=== PATIENT | female | born 1930 | race Caucasian/White ===

== ENCOUNTER 2018-07-07 05:53 | Inpatient (IN) | payer MEDICARE, OTHER ==
[2018-07-07 06:44] LABS: ANION GAP 15.4 mmol/L (5-15); CHLORIDE,CL 102 mmol/L (98-115); SODIUM,NA 134 mmol/L (136-145)
--- NOTE | 2018-07-07 06:50 | EDM.PDOC ---
ED HPI GENERAL MEDICAL PROBLEM - General Chief Complaint: General Stated Complaint: tarry stool Time Seen by Provider: 07/07/18 06:32 Source of Information: Reports: Patient, Family (Daughter) History Limitations: Reports: No Limitations - History of Present Illness INITIAL COMMENTS - FREE TEXT/NARRATIVE: Patient is an 87-year-old female that presents to the emergency department this morning via EMS and has a complaint of bloody stools. Per patient, she had a bowel movement that appeared dark and felt weak this morning, so contacted her daughter. Has a history of anemia, and states she is been taking 4 Aleve daily over the last 2 months for her chronic arthritis. Patient denies chest pain, shortness shortness of breath, headache, blurry vision, nausea or vomiting. Onset: Today Onset Date: 07/07/18 Onset Time: 05:00 Duration: Hour(s): Quality: Reports: Other (No pain) Severity: Mild Improves with: Reports: None Worsens with: Reports: None Associated Symptoms: Reports: Weakness. Denies: Confusion, Chest Pain, Fever/ Chills, Headaches, Nausea/Vomiting, Shortness of Breath, Syncope - Related Data Allergies Allergy/AdvReac Type Severity Reaction Status Date / Time ciprofloxacin [From Cipro] Allergy Diarrhea Verified 07/07/18 06:03 hydrocodone Allergy Dizziness Verified 07/07/18 06:03 Sulfa (Sulfonamide Allergy Rash Verified 07/07/18 06:34 Antibiotics) Home Meds: Home Meds Acetaminophen [Tylenol Arthritis] 1,300 mg PO Q8H 07/07/18 [History] Cholecalciferol (Vitamin D3) [Vitamin D] 5,000 unit PO DAILY 07/07/18 [History] Furosemide 20 mg PO DAILY PRN 07/07/18 [History] Naproxen Sodium [Aleve] 400 mg PO BID 07/07/18 [History] amLODIPine Besylate [Amlodipine Besylate] 10 mg PO DAILY 07/07/18 [History] ED ROS GENERAL - Review of Systems Review Of Systems: ROS reveals no pertinent complaints other than HPI. Constitutional: Reports: Malaise, Weakness HEENT: Reports: No Symptoms Respiratory: Reports: No Symptoms Cardiovascular: Reports: No Symptoms Endocrine: Reports: No Symptoms GI/Abdominal: Reports: Black Stool, Bloody Stool. Denies: Abdominal Pain : Reports: No Symptoms Musculoskeletal: Reports: No Symptoms Skin: Reports: No Symptoms Neurological: Reports: No Symptoms Psychiatric: Reports: No Symptoms Hematologic/Lymphatic: Reports: Anemia Immunologic: Reports: No Symptoms ED EXAM, GENERAL - Physical Exam Exam: See Below Exam Limited By: No Limitations General Appearance: Alert, WD/WN, No Apparent Distress Eye Exam: Bilateral Eye: Normal Inspection Nose: Normal Inspection, Normal Mucosa, No Blood Throat/Mouth: Normal Inspection, Normal Oropharynx, No Airway Compromise Head: Atraumatic, Normocephalic Neck: Normal Inspection, Supple, Non-Tender Respiratory/Chest: No Respiratory Distress, Lungs Clear, Normal Breath Sounds, No Accessory Muscle Use, Chest Non-Tender Cardiovascular: Regular Rate, Rhythm, Systolic Murmur GI/Abdominal: Normal Bowel Sounds, Soft, Non-Tender, No Organomegaly, No Distention, No Abnormal Bruit, No Mass. No: Distended, Guarding, Rigid, Rebound , Tender, Abnormal Bowel Sounds Back Exam: Normal Inspection. No: CVA Tenderness (L), CVA Tenderness (R) Extremities: Normal Inspection Neurological: Alert, Oriented, CN II-XII Intact, Normal Cognition Psychiatric: Normal Affect, Normal Mood Skin Exam: Warm, Dry, Intact, Normal Color, No Rash Lymphatic: No Adenopathy EKG INTERPRETATION EKG Date: 07/07/18 Time: 07:40 Rhythm: NSR Rate (Beats/Min): 85 [place]: Normal P-Wave: Present QRS: Normal ST-T: Normal QT: Normal Comparison: NA - No Prior EKG EKG Interpretation Comments: Occasional PVCs, no STEMI, no peaked or narrow T waves. Course - Vital Signs Last Recorded V/S: Last Vital Signs Temp 97.8 F 07/07/18 06:59 Pulse 93 07/07/18 06:59 Resp 24 H 07/07/18 06:59 BP 116/48 L 07/07/18 06:59 Pulse Ox 97 07/07/18 06:59 - Orders/Labs/Meds Orders: Active Orders 24 hr Category Date Time Status Patient Status [ADT] Routine ADT 07/07/18 07:40 Ordered EKG Documentation Completion [RC] ASDIRECTED Care 07/07/18 07:08 Ordered Oxygen Therapy [RC] PRN Care 07/07/18 07:40 Ordered VTE/DVT Education [RC] PER UNIT ROUTINE Care 07/07/18 07:40 Ordered Vital Signs [RC] Q4H Care 07/07/18 07:40 Ordered Regular Diet [DIET] Diet 07/07/18 Breakfast Ordered Hemoccult [OCCULT BLOOD DIAGNOSTIC] [OP] Stat Lab 07/07/18 06:33 Ordered PACKED CELLS [RED BLOOD CELLS LP] [BBK] Stat Lab 07/07/18 06:45 Ordered TYPE AND SCREEN [BBK] Stat Lab 07/07/18 06:45 Ordered TYPE AND SCREEN [BBK] Stat Lab 07/07/18 06:45 Ordered UA W/MICROSCOPIC [URIN] Stat Lab 07/07/18 06:10 Ordered Acetaminophen [Tylenol] Med 07/07/18 07:40 Ordered 650 mg PO Q4H PRN Dextrose 5%-0.45% NaCl [Dextrose 5%-1/2 NS] 500 ml Med 07/07/18 07:45 Ordered IV ASDIRECTED Ondansetron [Zofran ODT] Med 07/07/18 07:40 Ordered 4 mg PO Q4H PRN Sodium Chloride 0.9% [Syrex Flush] Med 07/07/18 06:10 Active 5 ml FLUSH Q8HR PRN oxyCODONE Med 07/07/18 07:40 Ordered 5 mg PO Q4H PRN Saline Lock Insert [OM.PC] Routine Oth 07/07/18 06:10 Ordered Resuscitation Status Routine Resus Stat 07/07/18 07:40 Ordered EKG 12 Lead [EK] Routine Ther 07/07/18 07:08 Ordered Medication Orders Acetaminophen (Tylenol) 650 mg PO Q4H PRN PRN Reason: Pain (Mild 1-3)/fever Dextrose/Sodium Chloride (Dextrose 5%-1/2 Ns) 500 mls @ 125 mls/hr IV ASDIRECTED [facility] Ondansetron HCl (Zofran Odt) 4 mg PO Q4H PRN PRN Reason: nausea, able to take PO Oxycodone HCl (Oxycodone) 5 mg PO Q4H PRN PRN Reason: Pain (moderate 4-6) Sodium Chloride (Syrex Flush) 5 ml FLUSH Q8HR PRN PRN Reason: Keep Vein Open Last Admin: 07/07/18 07:36 Dose: 5 ml Labs: Laboratory Tests 09/02/18 09/02/18 09/02/18 Range/Units 05:50 05:50 05:50 WBC 11.83 H (5.00-10.00) 10^3/uL RBC 2.21 L (3.80-5.50) 10^6/uL Hgb 5.4 L* (12.0-16.0) g/dL Hct 17.4 L* (37.0-47.0) % MCV 78.7 L (82.0-92.0) fL MCH 24.4 L (27.0-31.0) pg MCHC 31.0 L (32.0-36.0) g/dL RDW 20.0 H (11.5-14.5) % Plt Count 609 H (150-400) 10^3/uL MPV 9.0 (7.4-10.4) fL Immature Gran % (Auto) 0.4 (0.0-5.0) % Neut % (Auto) 78.9 H (50.0-70.0) % Lymph % (Auto) 14.6 L (20.0-40.0) % [place] % (Auto) 4.7 (2.0-8.0) % Eos % (Auto) 1.1 (1.0-3.0) % Baso % (Auto) 0.3 (0.0-1.0) % Immature Gran # (Auto) 0.05 (0.00-0.50) 10^3/uL Neut # (Auto) 9.32 H (2.50-7.00) 10^3/uL Lymph # (Auto) 1.73 (1.00-4.00) 10^3/uL [place] # (Auto) 0.56 (0.10-0.80) 10^3/uL Eos # (Auto) 0.13 (0.10-0.30) 10^3/uL Baso # (Auto) 0.04 (0.00-0.10) 10^3/uL PT (8.9-11.4) SEC INR (0.9-1.1) APTT (20.8-31.2) SEC Sodium 134 L (136-145) mmol/L Potassium 5.7 H (3.3-5.3) mmol/L Chloride 102 (98-115) mmol/L Carbon Dioxide 22.3 (21.0-32.0) mmol/L Anion Gap 15.4 H (5-15) mmol/L BUN 63 H* D (6-25) mg/dL Creatinine 0.78 (0.51-1.17) mg/dL Est Cr Clr Drug Dosing 41.05 mL/min Estimated GFR (MDRD) > 60 mL/min Glucose 179 mg/dL Calcium 8.9 (8.7-10.3) mg/dL Magnesium 1.8 (1.8-2.4) mg/dL Total Bilirubin 0.2 (0.2-1.0) mg/dL AST 30 (15-37) U/L ALT 15 (12-78) U/L Alkaline Phosphatase 52 (46-116) IU/L Total Protein 5.4 L (6.4-8.2) g/dL Albumin 2.28 L (3.00-4.80) g/dL 07/07/18 07/07/18 Range/Units 06:55 06:55 WBC (5.00-10.00) 10^3/uL RBC (3.80-5.50) 10^6/uL Hgb (12.0-16.0) g/dL Hct (37.0-47.0) % MCV (82.0-92.0) fL MCH (27.0-31.0) pg MCHC (32.0-36.0) g/dL RDW (11.5-14.5) % Plt Count (150-400) 10^3/uL MPV (7.4-10.4) fL Immature Gran % (Auto) (0.0-5.0) % Neut % (Auto) (50.0-70.0) % Lymph % (Auto) (20.0-40.0) % [place] % (Auto) (2.0-8.0) % Eos % (Auto) (1.0-3.0) % Baso % (Auto) (0.0-1.0) % Immature Gran # (Auto) (0.00-0.50) 10^3/uL Neut # (Auto) (2.50-7.00) 10^3/uL Lymph # (Auto) (1.00-4.00) 10^3/uL [place] # (Auto) (0.10-0.80) 10^3/uL Eos # (Auto) (0.10-0.30) 10^3/uL Baso # (Auto) (0.00-0.10) 10^3/uL PT 10.2 (8.9-11.4) SEC INR 1.0 (0.9-1.1) APTT 25.4 (20.8-31.2) SEC Sodium (136-145) mmol/L Potassium (3.3-5.3) mmol/L Chloride (98-115) mmol/L Carbon Dioxide (21.0-32.0) mmol/L Anion Gap (5-15) mmol/L BUN (6-25) mg/dL Creatinine (0.51-1.17) mg/dL Est Cr Clr Drug Dosing mL/min Estimated GFR (MDRD) mL/min Glucose mg/dL Calcium (8.7-10.3) mg/dL Magnesium (1.8-2.4) mg/dL Total Bilirubin (0.2-1.0) mg/dL AST (15-37) U/L ALT (12-78) U/L Alkaline Phosphatase (46-116) IU/L Total Protein (6.4-8.2) g/dL Albumin (3.00-4.80) g/dL Meds: Medications Generic Name Dose Route Start Last Admin Trade Name Freq PRN Reason Stop Dose Admin Acetaminophen 650 mg 07/07/18 07:40 Tylenol PO Q4H PRN Pain (Mild 1-3)/fever Dextrose/Sodium Chloride 500 mls @ 125 mls/hr 07/07/18 07:45 Dextrose 5%-1/2 Ns IV ASDIRECTED [facility] Ondansetron HCl 4 mg 07/07/18 07:40 Zofran Odt PO Q4H PRN nausea, able to take PO Oxycodone HCl 5 mg 07/07/18 07:40 Oxycodone PO Q4H PRN Pain (moderate 4-6) Sodium Chloride 5 ml 07/07/18 06:10 07/07/18 07:36 Syrex Flush FLUSH 5 ml Q8HR PRN Administration Keep Vein Open Discontinued Medications Generic Name Dose Route Start Last Admin Trade Name Freq PRN Reason Stop Dose Admin Ondansetron HCl 4 mg 07/07/18 07:18 07/07/18 07:24 Zofran IVPUSH 07/07/18 07:19 4 mg ONETIME ONE Administration Oxycodone/Acetaminophen 1 tab 07/07/18 07:18 07/07/18 07:26 Percocet 325-5 Mg PO 07/07/18 07:19 1 tab ONETIME ONE Administration - Re-Assessments/Exams Free Text/Narrative Re-Assessment/Exam: 07/07/18 07:45 Patient afebrile, nontoxic appearing, vital signs stable. Patient will be admitted inpatient, slow transfusion will be initiated with concern for hyperkalemia and elevated BUN. Departure - Departure Time of Disposition: 07:46 Disposition: Admitted As Inpatient 65 Condition: Fair Clinical Impression: Hyperkalemia Anemia Qualifiers: Anemia type: unspecified type Qualified Code(s): D64.9 - Anemia, unspecified - Discharge Information Referrals: Samina Salgado MD [Primary Care Provider] - Forms: ED Department Discharge - My Orders Last 24 Hours: My Active Orders 07/07/18 06:10 UA W/MICROSCOPIC [URIN] Stat Sodium Chloride 0.9% [Syrex Flush] 5 ml FLUSH Q8HR PRN Saline Lock Insert [OM.PC] Routine 07/07/18 06:33 Hemoccult [OCCULT BLOOD DIAGNOSTIC] [OP] Stat 07/07/18 06:45 PACKED CELLS [RED BLOOD CELLS LP] [BBK] Stat TYPE AND SCREEN [BBK] Stat TYPE AND SCREEN [BBK] Stat 07/07/18 07:08 EKG Documentation Completion [RC] ASDIRECTED EKG 12 Lead [EK] Routine 07/07/18 07:40 Patient Status [ADT] Routine Oxygen Therapy [RC] PRN VTE/DVT Education [RC] PER UNIT ROUTINE Vital Signs [RC] Q4H Acetaminophen [Tylenol] 650 mg PO Q4H PRN Ondansetron [Zofran ODT] 4 mg PO Q4H PRN oxyCODONE 5 mg PO Q4H PRN Resuscitation Status Routine 07/07/18 07:45 Dextrose 5%-0.45% NaCl [Dextrose 5%-1/2 NS] 500 ml IV ASDIRECTED 07/07/18 Breakfast Regular Diet [DIET] - Assessment/Plan Admission H&P: Please use this note as an admission H&P Last 24 Hours: My Active Orders 07/07/18 06:10 UA W/MICROSCOPIC [URIN] Stat Sodium Chloride 0.9% [Syrex Flush] 5 ml FLUSH Q8HR PRN Saline Lock Insert [OM.PC] Routine 07/07/18 06:33 Hemoccult [OCCULT BLOOD DIAGNOSTIC] [OP] Stat 07/07/18 06:45 PACKED CELLS [RED BLOOD CELLS LP] [BBK] Stat TYPE AND SCREEN [BBK] Stat TYPE AND SCREEN [BBK] Stat 07/07/18 07:08 EKG Documentation Completion [RC] ASDIRECTED EKG 12 Lead [EK] Routine 07/07/18 07:40 Patient Status [ADT] Routine Oxygen Therapy [RC] PRN VTE/DVT Education [RC] PER UNIT ROUTINE Vital Signs [RC] Q4H Acetaminophen [Tylenol] 650 mg PO Q4H PRN Ondansetron [Zofran ODT] 4 mg PO Q4H PRN oxyCODONE 5 mg PO Q4H PRN Resuscitation Status Routine 07/07/18 07:45 Dextrose 5%-0.45% NaCl [Dextrose 5%-1/2 NS] 500 ml IV ASDIRECTED 07/07/18 Breakfast Regular Diet [DIET] Assessment:: Anemia Plan: Admit inpatient
[2018-07-07] MEDS ORDERED: Ondansetron 4 MG/2 ML SDV IVPUSH ONE (07:18)
[2018-07-07] MEDS ORDERED: Acetaminophen/oxyCODONE 325-5 MG Tab PO ONE (07:18)
[2018-07-07] MEDS: Sodium Chloride 0.9% 5 ML Syringe FLUSH PRN ×3 (07:36→21:33)
[2018-07-07] MEDS ORDERED: Ondansetron 4 MG Tab.DIS PO PRN (07:40)
[2018-07-07] MEDS ORDERED: Dextrose 5%-0.45% NaCl 500 ML IV SCH (07:45)
[2018-07-07] MEDS: oxyCODONE 5 MG Tab PO PRN ×3 (14:35→23:04)
[2018-07-07 14:41] LABS: ANION GAP 14.7 mmol/L (5-15); CHLORIDE,CL 104 mmol/L (98-115); SODIUM,NA 137 mmol/L (136-145)
[2018-07-07] MEDS: Acetaminophen 325 MG Tab PO PRN ×2 (19:05→23:05)
[2018-07-07] MEDS ORDERED: Pantoprazole 40 MG Tab.CR PO ONE (21:00)
[2018-07-08] MEDS: oxyCODONE 5 MG Tab PO PRN ×5 (03:36→22:42)
[2018-07-08] MEDS: Pantoprazole 40 MG Tab.CR PO SCH ×2 (06:02→06:35)
[2018-07-08] MEDS: Acetaminophen 325 MG Tab PO PRN ×4 (06:02→22:43)
[2018-07-08 07:44] LABS: ANION GAP 11.8 mmol/L (5-15); CHLORIDE,CL 104 mmol/L (98-115); SODIUM,NA 137 mmol/L (136-145)
--- NOTE | 2018-07-08 11:53 | PCM.PN ---
- General Info Date of Service: 07/08/18 Admission Dx/Problem (Free Text): Patient is an 87-year-old female who presented to the emergency department for weakness and blood in stool and was admitted on 07/07/2018 for anemia and hyperkalemia. Patient was given 2 units of PRBCs. Patient's vital signs were stable upon admission. No evidence of continued GI bleed at that time. Subjective Update: Patient continues to gradually improve. Hemoglobin, hematocrit increased, potassium and BUNs decreased. Functional Status: Reports: Pain Controlled - Review of Systems General: Reports: No Symptoms HEENT: Reports: No Symptoms Pulmonary: Reports: No Symptoms Cardiovascular: Reports: No Symptoms Gastrointestinal: Reports: No Symptoms Genitourinary: Reports: No Symptoms Musculoskeletal: Reports: No Symptoms Skin: Reports: No Symptoms Neurological: Reports: No Symptoms Psychiatric: Reports: No Symptoms - Patient Data Vitals - Most Recent: Last Vital Signs Temp 98.8 F 07/08/18 06:23 Pulse 62 07/08/18 06:23 Resp 24 H 07/08/18 06:23 BP 130/62 07/08/18 06:23 Pulse Ox 98 07/08/18 07:40 Weight - Most Recent: 115 lb 12.8 oz I&O - Last 24 Hours: Intake & Output 07/07/18 07/08/18 07/08/18 22:59 06:59 14:59 Intake Total 910 125 Output Total 500 400 Balance 410 -275 Lab Results Last 24 Hours: Laboratory Results - last 24 hr 07/07/18 07/07/18 07/07/18 Range/Units 06:55 14:16 14:16 WBC 8.04 (5.00-10.00) 10^3/uL RBC 2.53 L (3.80-5.50) 10^6/uL Hgb 6.6 L* (12.0-16.0) g/dL Hct 20.7 L (37.0-47.0) % MCV 81.8 L D (82.0-92.0) fL MCH 26.1 L (27.0-31.0) pg MCHC 31.9 L (32.0-36.0) g/dL RDW 18.6 H (11.5-14.5) % Plt Count 413 H D (150-400) 10^3/uL MPV 8.1 (7.4-10.4) fL Immature Gran % (Auto) 0.7 (0.0-5.0) % Neut % (Auto) 77.6 H (50.0-70.0) % Lymph % (Auto) 14.1 L (20.0-40.0) % [place] % (Auto) 6.6 (2.0-8.0) % Eos % (Auto) 0.6 L (1.0-3.0) % Baso % (Auto) 0.4 (0.0-1.0) % Immature Gran # (Auto) 0.06 (0.00-0.50) 10^3/uL Neut # (Auto) 6.24 (2.50-7.00) 10^3/uL Lymph # (Auto) 1.13 (1.00-4.00) 10^3/uL [place] # (Auto) 0.53 (0.10-0.80) 10^3/uL Eos # (Auto) 0.05 L (0.10-0.30) 10^3/uL Baso # (Auto) 0.03 (0.00-0.10) 10^3/uL PT (8.9-11.4) SEC INR (0.9-1.1) Sodium 137 (136-145) mmol/L Potassium 4.7 (3.3-5.3) mmol/L Chloride 104 (98-115) mmol/L Carbon Dioxide 23.0 (21.0-32.0) mmol/L Anion Gap 14.7 (5-15) mmol/L BUN 59 H* (6-25) mg/dL Creatinine 0.73 (0.51-1.17) mg/dL Est Cr Clr Drug Dosing 38.26 mL/min Estimated GFR (MDRD) > 60 mL/min Glucose 132 mg/dL Calcium 8.9 (8.7-10.3) mg/dL Blood Type A POSITIVE Gel Antibody Screen Negative Crossmatch See Detail 07/08/18 07/08/18 07/08/18 Range/Units 07:15 07:15 07:15 WBC 7.17 (5.00-10.00) 10^3/uL RBC 2.81 L (3.80-5.50) 10^6/uL Hgb 7.6 L (12.0-16.0) g/dL Hct 23.1 L (37.0-47.0) % MCV 82.2 (82.0-92.0) fL MCH 27.0 (27.0-31.0) pg MCHC 32.9 (32.0-36.0) g/dL RDW 17.5 H (11.5-14.5) % Plt Count 361 (150-400) 10^3/uL MPV 8.2 (7.4-10.4) fL Immature Gran % (Auto) 0.1 (0.0-5.0) % Neut % (Auto) 72.0 H (50.0-70.0) % Lymph % (Auto) 14.6 L (20.0-40.0) % [place] % (Auto) 7.5 (2.0-8.0) % Eos % (Auto) 5.2 H (1.0-3.0) % Baso % (Auto) 0.6 (0.0-1.0) % Immature Gran # (Auto) 0.01 (0.00-0.50) 10^3/uL Neut # (Auto) 5.16 (2.50-7.00) 10^3/uL Lymph # (Auto) 1.05 (1.00-4.00) 10^3/uL [place] # (Auto) 0.54 (0.10-0.80) 10^3/uL Eos # (Auto) 0.37 H (0.10-0.30) 10^3/uL Baso # (Auto) 0.04 (0.00-0.10) 10^3/uL PT 9.6 (8.9-11.4) SEC INR 0.9 (0.9-1.1) Sodium 137 (136-145) mmol/L Potassium 4.2 (3.3-5.3) mmol/L Chloride 104 (98-115) mmol/L Carbon Dioxide 25.4 (21.0-32.0) mmol/L Anion Gap 11.8 (5-15) mmol/L BUN 36 H (6-25) mg/dL Creatinine 0.71 (0.51-1.17) mg/dL Est Cr Clr Drug Dosing 39.34 mL/min Estimated GFR (MDRD) > 60 mL/min Glucose 88 mg/dL Calcium 8.7 (8.7-10.3) mg/dL Blood Type Gel Antibody Screen Crossmatch Alejandro Results Last 24 Hours: Microbiology 07/07/18 06:50 Stool Occult Blood (ALEJANDRO) - Final Stool / Feces Med Orders - Current: Current Medications Acetaminophen (Tylenol) 650 mg PO Q4H PRN PRN Reason: Pain (Mild 1-3)/fever Last Admin: 07/08/18 06:02 Dose: 650 mg Ondansetron HCl (Zofran Odt) 4 mg PO Q4H PRN PRN Reason: nausea, able to take PO Oxycodone HCl (Oxycodone) 5 mg PO Q4H PRN PRN Reason: Pain (moderate 4-6) Last Admin: 07/08/18 08:12 Dose: 5 mg Pantoprazole Sodium (Protonix) 40 mg PO ACBREAKFAST [facility] Last Admin: 07/08/18 06:35 Dose: Not Given Sodium Chloride (Syrex Flush) 5 ml FLUSH Q8HR PRN PRN Reason: Keep Vein Open Last Admin: 07/07/18 21:33 Dose: 5 ml Discontinued Medications Dextrose/Sodium Chloride (Dextrose 5%-1/2 Ns) 500 mls @ 125 mls/hr IV ASDIRECTED [facility] Last Admin: 07/07/18 08:20 Dose: 125 mls/hr Ondansetron HCl (Zofran) 4 mg IVPUSH ONETIME ONE Stop: 07/07/18 07:19 Last Admin: 07/07/18 07:24 Dose: 4 mg Oxycodone/Acetaminophen (Percocet 325-5 Mg) 1 tab PO ONETIME ONE Stop: 07/07/18 07:19 Last Admin: 07/07/18 07:26 Dose: 1 tab Pantoprazole Sodium (Protonix) 40 mg PO ONETIME ONE Stop: 07/07/18 21:01 Last Admin: 07/07/18 21:28 Dose: 40 mg - Exam General: Alert, Oriented, Cooperative, No Acute Distress HEENT: Pupils Equal, Pupils Reactive Neck: Supple Lungs: Clear to Auscultation, Normal Respiratory Effort Cardiovascular: Regular Rate, Regular Rhythm GI/Abdominal Exam: Normal Bowel Sounds, Soft, Non-Tender, No Organomegaly, No Distention, No Abnormal Bruit, No Mass Back Exam: Normal Inspection. No: CVA Tenderness (L), CVA Tenderness (R) Extremities: Normal Inspection, No Pedal Edema Skin: Warm, Dry, Intact Neurological: No New Focal Deficit Psy/Mental Status: Alert, Normal Affect, Normal Mood - Problem List Review Problem List Initiated/Reviewed/Updated: Yes - My Orders Last 24 Hours: My Active Orders 07/07/18 10:55 UA W/MICROSCOPIC [URIN] Stat 07/07/18 12:52 EKG 12 Lead [EK] Routine 07/07/18 15:00 Vital Signs [RC] 0300,0700,1100,1500,1900,2300 07/07/18 15:37 Communication Order [RC] QSHIFT 07/07/18 Dinner Heart Healthy Diet [DIET] 07/08/18 07:00 Pantoprazole [ProTONIX] 40 mg PO ACBREAKFAST 07/08/18 11:44 Transfuse PRBC [Transfuse Red Blood Cells] [COMM] Stat - Assessment Assessment:: Patient is progressing well. Blood pressure remains 130s over 60s and heart rate in the 60s. Repeat lab work this a.m. showed WBC of 7.17, hemoglobin 7.6, hematocrit 23.1, potassium 4.2, and BUN of 36. All improved from previous day. No EKG changes. Patient will be given one more unit of PRBCs today and monitored closely. Patient has not had a bowel movement today. Last bowel movement was yesterday morning which was determined by nursing staff to be dark in color, but no bright red blood. Patient will be reevaluated by Dr. Kovacs tomorrow, and determination of status with need for diagnostic study to evaluate source anticipated. - Plan Plan:: Reevaluation by Dr. Kovacs tomorrow.
[2018-07-08] MEDS ORDERED: Sodium Chloride 0.9% 50 ML ONE (12:36)
[2018-07-09] MEDS: oxyCODONE 5 MG Tab PO PRN ×2 (03:15→09:11)
[2018-07-09] MEDS: Acetaminophen 325 MG Tab PO PRN ×2 (03:16→09:10)
[2018-07-09] MEDS: Pantoprazole 40 MG Tab.CR PO SCH (06:34)
[2018-07-09 07:44] LABS: ANION GAP 13.3 mmol/L (5-15); CHLORIDE,CL 102 mmol/L (98-115); SODIUM,NA 138 mmol/L (136-145)
--- NOTE | 2018-07-09 09:42 | PCM.DCSUM1 ---
Discharge Summary - Hospital Course Free Text/Narrative:: Kyara is being discharged from an inpatient stay from 07/07/18 - 07/09/18 for GI bleed, presumed to be upper GI bleed secondary to NSAID use for chronic pain associated with osteoarthritis and rheumatoid arthritis. She has not tolerated any of the DMARDs or other meds for RA and so she has uncontrolled pain. Tylenol has not been helpful along and she has had an intolerance to opoid medications due to dizziness and weakness and nausea. She has been tolerating oxycodone here with zofran as needed for nausea and they will go home on this. Kyara had noted blood in her stool, per ambulance report had black loose stool and in ER reported she did actually see some bright red blood in it. She denied any abdominal pain. Occult blood was positive although stool has dark, no bright red here in the hospital. She has not had any emesis. She was started on pantoprazole 40 mg PO daily and is tolerating that. NSAID's were discontinued. She has not had a BM in 24 hour and does not feel constipated. She would like to be on a medication to help pass her bowels if she is going to be on the oxycodone. Her daughter is requesting Percocet as she tolerated that well in the ER. Her hemoglobin was 5.4 on admission which was down from her baseline of 10.5 in February of 2018. She received a total of 3 units of PRBC's and hemoglobin at discharge is 9.6. She was still feeling tired but improved. She also had an acute elevation of her BUN at 63 and at discharge it is WNL at 22. Sodium was slightly low at 134 and K+ was elevated at 5.7 and at discharge sodium is normal at 138 and potassium is 4.2. Platelet count initially 609 and at discharge is 371. UA with 30-40 WBC and small LE with few bacteria, urine culture pending. No antibiotics at this time as she is asymptomatic and no sign of systemic infection. She also complained of severe hip and knee pain bilaterally, no hx of fall. X- rays of the bilateral hips and knees were ordered and reports are pending at the time of discharge. They are working on scheduling an appointment with orthopedics for additional evaluation. Recommend upper GI endoscopy as an outpatient. Services not available to be done inpatient at this time. Hemoglobin stable and no additional sign of ongoing blood loss. She states she cannot travel at this time due to pain and so if the percocet helps they will travel to [place] to see Dr. Morris for EGD. Would also recommend colonoscopy but she declines at this time states "there is no way I could drink 64 ounces". She will start with EGD. Follow-up in 1 week as an outpatient in clinic, sooner if clinically indicated. Discharge diagnoses: Upper GI bleed 2/2 NSAID use Anemia 2/2 above, improved after PRBC transfusion Elevated BUN, resolved Hyperkalemia, resolved Chronic pain Rheumatoid arthritis Osteoarthritis Heart murmur, stable New meds at discharge: Percocet 5/325 mg tabs, 1 tab PO q 4 hours PRN pain. Ondansetron 4 mg ODT, 1 tab PO q 6 hours PRN nausea. Pantoprazole 40 mg PO daily. Discontinued meds: Tylenol arthritis (replaced with Percocet) Aleve (2/2 GI bleed) Diagnosis: Stroke: No Modified Austyn Scale: No Signif.Disability Despite Sympt.Able to Carry Out Usual Act./Duties Modified Wright Scale Score: 1 - Discharge Data Discharge Date: 07/09/18 Discharge Disposition: Home, Self-Care 01 Condition: Good - Discharge Diagnosis/Problem(s) (1) Upper GI bleed SNOMED Code(s): 03220238 ICD Code: K92.2 - GASTROINTESTINAL HEMORRHAGE, UNSPECIFIED Status: Acute Current Visit: Yes (2) Elevated BUN SNOMED Code(s): 176487543 ICD Code: R79.9 - ABNORMAL FINDING OF BLOOD CHEMISTRY, UNSPECIFIED Status: Acute Current Visit: Yes (3) Hyponatremia SNOMED Code(s): 00326537 ICD Code: E87.1 - HYPO-OSMOLALITY AND HYPONATREMIA Status: Acute Current Visit: Yes (4) Rheumatoid arthritis SNOMED Code(s): 16388235 ICD Code: M06.9 - RHEUMATOID ARTHRITIS, UNSPECIFIED Status: Acute Current Visit: Yes (5) Osteoarthritis SNOMED Code(s): 857541033 ICD Code: M19.90 - UNSPECIFIED OSTEOARTHRITIS, UNSPECIFIED SITE Status: Acute Current Visit: Yes (6) Anemia SNOMED Code(s): 616268938 ICD Code: D64.9 - ANEMIA, UNSPECIFIED Status: Acute Current Visit: Yes Qualifiers: Anemia type: unspecified type Qualified Code(s): D64.9 - Anemia, unspecified (7) Hyperkalemia SNOMED Code(s): 60419267 ICD Code: E87.5 - HYPERKALEMIA Status: Acute Current Visit: Yes - Patient Summary/Data Recommended Follow-up Testing/Procedures: Upper GI endoscopy - Patient Instructions Diet: Regular Diet as Tolerated - Discharge Plan *PRESCRIPTION DRUG MONITORING PROGRAM REVIEWED*: Not Applicable *COPY OF PRESCRIPTION DRUG MONITORING REPORT IN PATIENT ABRAHAM: Not Applicable Prescriptions/Med Rec: Acetaminophen/oxyCODONE [Percocet 325-5 MG] 1 each PO Q4HR PRN #30 tab PRN Reason: Pain Ondansetron [Zofran ODT] 4 mg PO Q6H PRN #30 tab.dis PRN Reason: nausea, able to take PO Pantoprazole [ProTONIX] 40 mg PO ACBREAKFAST #30 tab.cr Sennosides/Docusate Sodium [Senna Plus Tablet] 1 tab PO BID PRN #60 tab PRN Reason: Constipation Home Medications: Home Meds Cholecalciferol (Vitamin D3) [Vitamin D] 5,000 unit PO DAILY 07/07/18 [History] Furosemide 20 mg PO DAILY PRN 07/07/18 [History] Non-Formulary Medication [NF Drug] 1 cap PO BIDMEALS 07/07/18 [History] Non-Formulary Medication [NF Drug] 1 cap PO TIDMEALS 07/07/18 [History] amLODIPine Besylate [Amlodipine Besylate] 10 mg PO DAILY 07/07/18 [History] Acetaminophen/oxyCODONE [Percocet 325-5 MG] 1 each PO Q4HR PRN #30 tab 07/09/18 [Rx] Ondansetron [Zofran ODT] 4 mg PO Q6H PRN #30 tab.dis 07/09/18 [Rx] Pantoprazole [ProTONIX] 40 mg PO ACBREAKFAST #30 tab.cr 07/09/18 [Rx] Sennosides/Docusate Sodium [Senna Plus Tablet] 1 tab PO BID PRN #60 tab [Rx] Forms: ED Department Discharge Referrals: Samina Salgado MD [Primary Care Provider] - - General Info Date of Service: 07/09/18 Admission Dx/Problem (Free Text: Patient is an 87-year-old female who presented to the emergency department for weakness and blood in stool and was admitted on 07/07/2018 for anemia and hyperkalemia. Patient was given 2 units of PRBCs. Patient's vital signs were stable upon admission. No evidence of continued GI bleed at that time. - Patient Data Vitals - Most Recent: Last Vital Signs Temp 98.4 F 07/09/18 06:50 Pulse 65 07/09/18 06:50 Resp 16 07/09/18 06:50 BP 148/59 H 07/09/18 06:50 Pulse Ox 94 L 07/09/18 08:30 Weight - Most Recent: 115 lb 12.8 oz I&O - Last 24 hours: Intake & Output 07/08/18 07/09/18 07/09/18 22:59 06:59 14:59 Intake Total 544 100 Output Total 300 1000 Balance 244 -900 Lab Results - Last 24 hrs: Laboratory Results - last 24 hr 07/07/18 07/09/18 07/09/18 Range/Units 06:55 07:10 07:10 WBC 5.88 (5.00-10.00) 10^3/uL RBC 3.60 L (3.80-5.50) 10^6/uL Hgb 9.6 L D (12.0-16.0) g/dL Hct 30.0 L (37.0-47.0) % MCV 83.3 (82.0-92.0) fL MCH 26.7 L (27.0-31.0) pg MCHC 32.0 (32.0-36.0) g/dL RDW 19.0 H (11.5-14.5) % Plt Count 371 (150-400) 10^3/uL MPV 8.3 (7.4-10.4) fL Immature Gran % (Auto) 0.2 (0.0-5.0) % Neut % (Auto) 69.2 (50.0-70.0) % Lymph % (Auto) 15.6 L (20.0-40.0) % [place] % (Auto) 8.7 H (2.0-8.0) % Eos % (Auto) 6.0 H (1.0-3.0) % Baso % (Auto) 0.3 (0.0-1.0) % Immature Gran # (Auto) 0.01 (0.00-0.50) 10^3/uL Neut # (Auto) 4.07 (2.50-7.00) 10^3/uL Lymph # (Auto) 0.92 L (1.00-4.00) 10^3/uL [place] # (Auto) 0.51 (0.10-0.80) 10^3/uL Eos # (Auto) 0.35 H (0.10-0.30) 10^3/uL Baso # (Auto) 0.02 (0.00-0.10) 10^3/uL Sodium 138 (136-145) mmol/L Potassium 4.2 (3.3-5.3) mmol/L Chloride 102 (98-115) mmol/L Carbon Dioxide 26.9 (21.0-32.0) mmol/L Anion Gap 13.3 (5-15) mmol/L BUN 22 (6-25) mg/dL Creatinine 0.68 (0.51-1.17) mg/dL Est Cr Clr Drug Dosing 41.08 mL/min Estimated GFR (MDRD) > 60 mL/min Glucose 100 mg/dL Calcium 9.0 (8.7-10.3) mg/dL Total Bilirubin 0.3 (0.2-1.0) mg/dL AST 18 (15-37) U/L ALT 15 (12-78) U/L Alkaline Phosphatase 53 (46-116) IU/L Total Protein 5.7 L (6.4-8.2) g/dL Albumin 2.33 L (3.00-4.80) g/dL Blood Type A POSITIVE Gel Antibody Screen Negative Crossmatch See Detail Med Orders - Current: Current Medications Acetaminophen (Tylenol) 650 mg PO Q4H PRN PRN Reason: Pain (Mild 1-3)/fever Last Admin: 07/09/18 09:10 Dose: 650 mg Ondansetron HCl (Zofran Odt) 4 mg PO Q4H PRN PRN Reason: nausea, able to take PO Oxycodone HCl (Oxycodone) 5 mg PO Q4H PRN PRN Reason: Pain (moderate 4-6) Last Admin: 07/09/18 09:11 Dose: 5 mg Pantoprazole Sodium (Protonix) 40 mg PO ACBREAKFAST [facility] Last Admin: 07/09/18 06:34 Dose: 40 mg Senna/Docusate Sodium (Senna Plus) 1 tab PO BID PRN PRN Reason: Constipation Sodium Chloride (Syrex Flush) 5 ml FLUSH Q8HR PRN PRN Reason: Keep Vein Open Last Admin: 07/07/18 21:33 Dose: 5 ml Discontinued Medications Dextrose/Sodium Chloride (Dextrose 5%-1/2 Ns) 500 mls @ 125 mls/hr IV ASDIRECTED [facility] Last Admin: 07/07/18 08:20 Dose: 125 mls/hr Sodium Chloride (Normal Saline) Confirm Administered Dose 50 mls @ as directed .ROUTE .STK-MED ONE Stop: 07/08/18 12:37 Last Admin: 07/08/18 13:02 Dose: 100 mls/hr Ondansetron HCl (Zofran) 4 mg IVPUSH ONETIME ONE Stop: 07/07/18 07:19 Last Admin: 07/07/18 07:24 Dose: 4 mg Oxycodone/Acetaminophen (Percocet 325-5 Mg) 1 tab PO ONETIME ONE Stop: 07/07/18 07:19 Last Admin: 07/07/18 07:26 Dose: 1 tab Pantoprazole Sodium (Protonix) 40 mg PO ONETIME ONE Stop: 07/07/18 21:01 Last Admin: 07/07/18 21:28 Dose: 40 mg - Exam General: Reports: Alert, Oriented, Cooperative, No Acute Distress Lungs: Reports: Clear to Auscultation, Normal Respiratory Effort Cardiovascular: Reports: Regular Rate, Regular Rhythm, Murmurs GI/Abdominal Exam: Normal Bowel Sounds, Soft, Non-Tender
== END 2018-07-09 12:20 | disposition home or self-care (01) | DRG 378 ==
LOC: KA.ED 05:53 → KA.MS 07:40
PROVIDERS: ADMIT Physician Assistant Surgical; ATTEND Physician Assistant Surgical
PROC: 30233N1 Transfusion of Nonautologous Red Blood Cells into Peripheral Vein, Percutaneous Approach (ICD-10-PCS; principal; 2018-07-07)
DX: K92.1 Melena (principal); D64.9 Anemia, unspecified; K92.2 Gastrointestinal hemorrhage, unspecified; E87.1 Hypo-osmolality and hyponatremia; Z79.1 Long term (current) use of non-steroidal anti-inflammatories (NSAID); M19.90 Unspecified osteoarthritis, unspecified site; M06.9 Rheumatoid arthritis, unspecified; G89.29 Other chronic pain; R79.89 Other specified abnormal findings of blood chemistry; E87.5 Hyperkalemia; R01.1 Cardiac murmur, unspecified; Z88.1 Allergy status to other antibiotic agents; Z88.5 Allergy status to narcotic agent; Z88.2 Allergy status to sulfonamides; Z79.899 Other long term (current) drug therapy
CPT/HCPCS: 36415; 36430; 73560-50; 80048; 80053; 81001; 82272; 83735; 85025; 85610; 85730; 86850; 86900; 86901; 86920; 86922; 87086; 93005; 96374; 99285; A9270-GY; J2405; J7042; J7050; P9016

== ENCOUNTER 2019-02-20 14:26 | Observation (INO) | payer MEDICARE, OTHER ==
[2019-02-20] MEDS ORDERED: Aspirin 81 MG Tab.Chew PO ONE (14:46)
--- NOTE | 2019-02-20 15:13 | EDM.PDOC ---
<Augustin Limon - Last Filed: 02/20/19 15:07> ED HPI GENERAL MEDICAL PROBLEM - General Chief Complaint: General Stated Complaint: TACHYCARDIA,NOT FEELING WELL Time Seen by Provider: 02/20/19 15:05 - Related Data Allergies Allergy/AdvReac Type Severity Reaction Status Date / Time ciprofloxacin [From Cipro] Allergy Diarrhea Verified 02/20/19 14:40 hydrocodone Allergy Dizziness Verified 02/20/19 14:40 Sulfa (Sulfonamide Allergy Rash Verified 02/20/19 14:40 Antibiotics) Home Meds: Home Meds Cholecalciferol (Vitamin D3) [Vitamin D] 5,000 unit PO DAILY 07/07/18 [History] Furosemide 20 mg PO DAILY PRN 07/07/18 [History] amLODIPine Besylate [Amlodipine Besylate] 10 mg PO DAILY 07/07/18 [History] Ondansetron [Zofran ODT] 4 mg PO Q6H PRN #30 tab.dis 07/09/18 [Rx] Acetaminophen/oxyCODONE [Percocet 325-5 MG] 1 each PO Q4HR 02/20/19 [History] Magnesium Hydroxide [Milk of Magnesia] 30 ml PO Q72H PRN 02/20/19 [History] Past Medical History HEENT History: Reports: Glaucoma, Hard of Hearing Cardiovascular History: Reports: Heart Murmur, Hypertension, Other (See Below) Other Cardiovascular History: episode of a-fib Respiratory History: Reports: Other (See Below) Other Respiratory History: 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 torn rotator cuff R Hematologic History: Reports: Anemia - Infectious Disease History Infectious Disease History: Reports: C-Difficile, Chicken Pox, Measles - Past Surgical History GI Surgical History: Reports: None, Colonoscopy, EGD Musculoskeletal Surgical History: Reports: Other (See Below) Social & Family History - Family History Family Medical History: Noncontributory - Caffeine Use Caffeine Use: Reports: None Course - Vital Signs Last Recorded V/S: Last Vital Signs Temp 36.8 C 02/20/19 14:36 Pulse 88 02/20/19 15:25 Resp 23 H 02/20/19 15:25 BP 136/68 02/20/19 15:25 Pulse Ox 98 02/20/19 15:25 Orthostatic Blood Pressure [] 127/50 Orthostatic Blood Pressure [] 121/50 - Orders/Labs/Meds Orders: Active Orders 24 hr Category Date Time Status EKG Documentation Completion [RC] ASDIRECTED Care 02/20/19 14:47 Active Orthostatic Vital Signs [RC] ASDIRECTED Care 02/20/19 15:58 Ordered CXR [Chest 2V] [CR] Stat Exams 02/20/19 15:22 Taken B-TYPE NATRIURETIC PEPTIDE,BNP [CHEM] Stat Lab 02/20/19 15:55 Ordered CK W CKMB [CHEM] Stat Lab 02/20/19 15:55 Ordered EKG 12 Lead [EK] Routine Ther 02/20/19 14:46 Ordered Labs: Laboratory Tests 02/20/19 02/20/19 Range/Units 15:00 15:00 WBC 6.67 (5.00-10.00) 10^3/uL RBC 3.79 L (3.80-5.50) 10^6/uL Hgb 8.8 L (12.0-16.0) g/dL Hct 28.4 L (37.0-47.0) % MCV 74.9 L D (82.0-92.0) fL MCH 23.2 L (27.0-31.0) pg MCHC 31.0 L (32.0-36.0) g/dL RDW 17.0 H (11.5-14.5) % Plt Count 452 H D (150-400) 10^3/uL MPV 8.1 (7.4-10.4) fL Immature Gran % (Auto) 0.1 (0.0-5.0) % Neut % (Auto) 75.0 H (50.0-70.0) % Lymph % (Auto) 14.8 L (20.0-40.0) % [place] % (Auto) 7.5 (2.0-8.0) % Eos % (Auto) 2.2 (1.0-3.0) % Baso % (Auto) 0.4 (0.0-1.0) % Immature Gran # (Auto) 0.01 (0.00-0.50) 10^3/uL Neut # (Auto) 4.99 (2.50-7.00) 10^3/uL Lymph # (Auto) 0.99 L (1.00-4.00) 10^3/uL [place] # (Auto) 0.50 (0.10-0.80) 10^3/uL Eos # (Auto) 0.15 (0.10-0.30) 10^3/uL Baso # (Auto) 0.03 (0.00-0.10) 10^3/uL Helmet Cells Occasional Elliptocytes Few Sodium 133 L (136-145) mmol/L Potassium 3.8 (3.3-5.3) mmol/L Chloride 94 L (98-115) mmol/L Carbon Dioxide 27.6 (21.0-32.0) mmol/L Anion Gap 15.2 H (5-15) mmol/L BUN 23 (6-25) mg/dL Creatinine 0.67 (0.51-1.17) mg/dL Est Cr Clr Drug Dosing 40.89 mL/min Estimated GFR (MDRD) > 60 mL/min Glucose 133 H (75 - 99) mg/dL Calcium 9.6 (8.7-10.3) mg/dL Troponin I 0.04 (0.00-0.070) ng/mL Meds: Medications Discontinued Medications Generic Name Dose Route Start Last Admin Trade Name Burkeq PRN Reason Stop Dose Admin Aspirin 324 mg 02/20/19 14:46 02/20/19 14:50 Aspirin PO 02/20/19 14:47 324 mg ONETIME ONE Administration Nitroglycerin 0.4 mg 02/20/19 15:19 02/20/19 15:25 Nitrostat SL 02/20/19 15:20 0.4 mg ONETIME ONE Administration - Re-Assessments/Exams Free Text/Narrative Re-Assessment/Exam: 02/20/19 15:19 As I was starting to evaluate this patient, RADHA Bravo arrived for shift change and will be taking over care as well as documentation. Departure - Departure Disposition: Refer to Observation Clinical Impression: Hyponatremia Chest pain Qualifiers: Chest pain type: unspecified Qualified Code(s): R07.9 - Chest pain, unspecified COPD (chronic obstructive pulmonary disease) Qualifiers: COPD type: unspecified COPD Qualified Code(s): J44.9 - Chronic obstructive pulmonary disease, unspecified Anemia Qualifiers: Anemia type: other cause Other causes of anemia: other cause, not classified Qualified Code(s): D64.89 - Other specified anemias - Discharge Information Referrals: Samina Salgado MD [Primary Care Provider] - Forms: ED Department Discharge - My Orders Last 24 Hours: My Active Orders 02/20/19 15:55 B-TYPE NATRIURETIC PEPTIDE,BNP [CHEM] Stat CK W CKMB [CHEM] Stat 02/20/19 15:58 Orthostatic Vital Signs [RC] ASDIRECTED - Assessment/Plan Last 24 Hours: My Active Orders 02/20/19 15:55 B-TYPE NATRIURETIC PEPTIDE,BNP [CHEM] Stat CK W CKMB [CHEM] Stat 02/20/19 15:58 Orthostatic Vital Signs [RC] ASDIRECTED <Mihir Gonzalez - Last Filed: 02/20/19 16:42> ED HPI GENERAL MEDICAL PROBLEM - General Source of Information: Reports: Patient, Family - History of Present Illness INITIAL COMMENTS - FREE TEXT/NARRATIVE: 88 YO WF complaining of palpitations, mild chest pressure with associated weakness and lightheadedness since yesterday. Pt reports chest pressure occurs from time to time and states this is no different, but today she noticed swelling in her ankles and elevated blood pressure prompting ER visit. Pt with PMH of COPD with O2 dependency. Pt denies any worsening shortness of breath or increased oxygen use. Pt denies fever/chills, no nausea/vomiting, no syncope, and no diaphoresis. Onset Date: 02/19/19 Duration: Day(s): (1) Location: Reports: Chest Quality: Reports: Pressure Severity: Mild Improves with: Reports: None Worsens with: Reports: None Associated Symptoms: Reports: Chest Pain, Shortness of Breath, Weakness. Denies : Diaphoresis, Fever/Chills, Nausea/Vomiting, Syncope ED ROS GENERAL - Review of Systems Review Of Systems: See Below Constitutional: Reports: No Symptoms HEENT: Reports: No Symptoms Respiratory: Reports: Shortness of Breath Cardiovascular: Reports: Chest Pain, Blood Pressure Problem, Edema, Lightheadedness, Palpitations Endocrine: Reports: No Symptoms GI/Abdominal: Reports: No Symptoms : Reports: No Symptoms Musculoskeletal: Reports: No Symptoms Skin: Reports: No Symptoms Neurological: Reports: No Symptoms Psychiatric: Reports: No Symptoms Hematologic/Lymphatic: Reports: No Symptoms Immunologic: Reports: No Symptoms ED EXAM, GENERAL - Physical Exam Exam: See Below Exam Limited By: No Limitations General Appearance: Alert, WD/WN, No Apparent Distress Eye Exam: Bilateral Eye: EOMI, PERRL Ears: Normal External Exam, Normal Canal, Hearing Grossly Normal, Normal TMs Nose: Normal Inspection, Normal Mucosa, No Blood Throat/Mouth: Normal Inspection, Normal Lips, Normal Teeth, Normal Gums, Normal Oropharynx, Normal Voice, No Airway Compromise Head: Atraumatic, Normocephalic Neck: Normal Inspection, Supple, Non-Tender, Full Range of Motion Respiratory/Chest: No Respiratory Distress, Lungs Clear, Normal Breath Sounds, No Accessory Muscle Use, Chest Non-Tender Cardiovascular: Normal Peripheral Pulses, Regular Rate, Rhythm, Systolic Murmur GI/Abdominal: Normal Bowel Sounds, Soft, Non-Tender, No Organomegaly, No Distention, No Abnormal Bruit, No Mass Back Exam: Normal Inspection, Full Range of Motion, NT Extremities: Pedal Edema Neurological: Alert, Oriented, CN II-XII Intact, Normal Cognition, Normal Gait, Normal Reflexes, No Motor/Sensory Deficits Psychiatric: Normal Affect, Normal Mood Skin Exam: Warm, Dry, Intact, Normal Color, No Rash Lymphatic: No Adenopathy EKG INTERPRETATION EKG Date: 02/20/19 Time: 15:00 Rhythm: NSR Rate (Beats/Min): 78 [place]: Normal P-Wave: Present QRS: Normal ST-T: Normal QT: Normal Course - Radiology Interpretation Free Text/Narrative:: CXR- chronic interstitial changes; NAD Departure - Departure Time of Disposition: 16:41 Condition: Fair - My Orders Last 24 Hours: My Active Orders 02/20/19 15:55 B-TYPE NATRIURETIC PEPTIDE,BNP [CHEM] Stat CK W CKMB [CHEM] Stat 02/20/19 15:58 Orthostatic Vital Signs [RC] ASDIRECTED - Assessment/Plan Last 24 Hours: My Active Orders 02/20/19 15:55 B-TYPE NATRIURETIC PEPTIDE,BNP [CHEM] Stat CK W CKMB [CHEM] Stat 02/20/19 15:58 Orthostatic Vital Signs [RC] ASDIRECTED Assessment:: 1. chest pain 2. palpitation 3. COPD exacerbation 4. Anemia 5. Hyponatremia Plan: 1. Admit for Obs 2. trop I Q6 x 3 3. ASA/Nitro 4. supportive care 5. serial Hgb 6. Duoneb tx Q4 and PRN
[2019-02-20] MEDS ORDERED: Nitroglycerin 0.4 MG Tab.SL SL ONE (15:19)
[2019-02-20 15:43] LABS: ANION GAP 15.2 mmol/L (5-15); CHLORIDE,CL 94 mmol/L (98-115); SODIUM,NA 133 mmol/L (136-145)
--- NOTE | 2019-02-20 16:13 | CR ---
[id number] RAD/RAD Chest PA And Lateral EXAM: RAD Chest PA And Lateral INDICATION: CHEST HEAVINESS. COMPARISON: Multiple priors, most recent is a radiograph from February 2018. Most recent CTs from October 03, 2017. DISCUSSION: Stable enlargement of the cardiomediastinal silhouette. Again seen is sequela of chronic interstitial lung disease with scarring and bronchiectasis, as seen on a CT from 2017. Findings appear to have progressed, most prominent in the right midlung. Differential diagnosis includes pneumonia in the setting of an acute infection. Otherwise, no significant change. IMPRESSION: Progression of chronic interstitial lung disease versus superimposed acute pneumonia in the right midlung, described above. Pietro Babb MD 02/20/19 3025 Thank you for allowing us to participate in the care of your patient.
[2019-02-20] MEDS ORDERED: cefTRIAXone 1 GM Vial IVPUSH ONE (16:22)
[2019-02-20] MEDS ORDERED: Sodium Chloride 0.9% 10 ML Syringe FLUSH PRN (16:27)
[2019-02-20] MEDS: Nitroglycerin 2% Oint 1 GM UD Packet TOP SCH ×2 (18:03→23:29)
[2019-02-20] MEDS ORDERED: Furosemide 20 MG Tab PO PRN (19:48)
[2019-02-20] MEDS ORDERED: Magnesium Hydroxide 400 MG/5 ML Susp 30 ML Cup PO PRN (19:48)
[2019-02-20] MEDS: Acetaminophen/oxyCODONE 325-5 MG Tab PO SCH (20:37)
[2019-02-20] MEDS ORDERED: Levofloxacin 500 MG Tab PO ONE (22:45)
[2019-02-20] MEDS ORDERED: Famotidine 20 MG Tab PO ONE (23:15)
[2019-02-21] MEDS: Acetaminophen/oxyCODONE 325-5 MG Tab PO SCH ×4 (00:34→11:37)
[2019-02-21] MEDS: Nitroglycerin 2% Oint 1 GM UD Packet TOP SCH ×2 (05:03→11:43)
--- NOTE | 2019-02-21 05:36 | HP ---
PATIENT PROFILE: The patient is an 88-year-old female patient who lives in [place], [place]. HISTORY OF PRESENT ILLNESS: This patient presented to the emergency room earlier today because of tachycardia and not feeling well. No complaints of chest pain but does have some epigastric discomfort. PAST MEDICAL HISTORY: Includes hypertension and chronic pain. Past infectious disease history includes Clostridium difficile infection and chickenpox and measles. PAST SURGICAL HISTORY: None. MEDICATIONS: Include 1. Oxycodone-acetaminophen 5/325 one tablet every 4 hours as needed for pain. 2. Magnesium hydroxide 30 mL on a p.r.n. basis. 3. Docusate 100 mg daily as necessary. 4. Amlodipine 10 mg daily. 5. Lasix 20 mg daily. SOCIAL/PERSONAL HISTORY: The patient does not smoke. Denies alcohol usage. FAMILY HISTORY: None significant. REVIEW OF SYSTEMS: HEAD AND NECK: No complaints. EYES: No complaints. EARS NOSE AND THROAT: No complaints. CHEST: Complains of chest palpitation but no distinct chest pain. HEART: Complains of palpitation. No dyspnea. No coughing. No chest pain. ABDOMEN: Some complaints of belching and bloating in the epigastric region. Slight nausea but no vomiting. No rectal bleeding. UROLOGICAL: No complaints. NEUROLOGICAL: No complaints. PHYSICAL EXAMINATION: GENERAL: The patient is alert. VITAL SIGNS: Temperature 36.8, pulse 88, respirations 20, blood pressure 136/68, oxygen saturation 98%. HEAD: Negative. EYES: Arcus senilis. EARS NOSE AND THROAT: Normal. NECK: Supple. Full range of motion. No midline swellings. LUNGS: Clinically clear to percussion and auscultation. HEART: Regular rhythm. Slight grade 1/6 systolic murmur in the apex. BREASTS: Without any masses. ABDOMEN: Soft. No tenderness noted. No hepatosplenomegaly. No rebound. No hernias noted. EXTREMITIES: Femoral pulses good. Extremities normal. NEUROLOGIC: Essentially intact. The patient has a history of some fast heart rate and has not been feeling well. DIAGNOSTIC: Chest x-ray shows chronic interstitial disease with possible pneumonia on the right side. Sodium is low at 133. Beta-natriuretic peptide is 131. LABORATORY DATA: Her hemoglobin is 8.8. She is moderately anemic. MCV is 74.9 which is low. MCH is 23.2, low. MCHC is 31, low. RDW is 17 which is slightly high. Platelet count is high at 452. IMPRESSION/PLAN: 1. Slight tachycardia, exact etiology is not known. Review cardiograms and watch her heart rate closely. She could be developing atrial fibrillation. 2. Possible right lower lobe pneumonia. We will start her on Rocephin. The evidence for pneumonia is not very clear-cut at this time. We will re- evaluate in the a.m. We will also get sputum for Gram stain and culture and sensitivity. We will watch her O2 sats closely. Wakeup. Continue old medications. 3. , Anemia, hypochromic, possible and deficiency. Will get serum iron, iron binding capacity, RBC, folate and stool for blood. May require blood transfusion if the hemoglobin keeps dropping. Will also start PPIs prophylactically. /[id number]/MODL MTDD
[2019-02-21] MEDS ORDERED: Omeprazole 20 MG Cap.CR PO SCH (07:30)
[2019-02-21 08:04] LABS: ANION GAP 16.8 mmol/L (5-15); CHLORIDE,CL 95 mmol/L (98-115); SODIUM,NA 136 mmol/L (136-145)
[2019-02-21] MEDS ORDERED: amLODIPine 5 MG Tab PO SCH (09:00)
[2019-02-21] MEDS ORDERED: Aspirin 325 MG Tab.EC PO SCH (09:00)
[2019-02-21] MEDS ORDERED: Cholecalciferol (Vitamin D3) 1,000 Unit Tab PO SCH (09:00)
--- NOTE | 2019-02-21 10:44 | PCM.DCSUM1 ---
Discharge Summary - Discharge Data Discharge Date: 02/21/19 Discharge Disposition: Home, Self-Care 01 Condition: Good - Patient Instructions Diet: Regular Diet as Tolerated Activity: As Tolerated Notify Provider of: Fever, Increased Pain, Nausea and/or Vomiting - Discharge Plan *COPY OF PRESCRIPTION DRUG MONITORING REPORT IN PATIENT ABRAHAM: Yes Prescriptions/Med Rec: Omeprazole 20 mg PO ACBREAKFAST #30 cap.cr Home Medications: Home Meds Cholecalciferol (Vitamin D3) [Vitamin D] 5,000 unit PO DAILY 07/07/18 [History] Furosemide 20 mg PO DAILY PRN 07/07/18 [History] amLODIPine Besylate [Amlodipine Besylate] 10 mg PO DAILY 07/07/18 [History] Ondansetron [Zofran ODT] 4 mg PO Q6H PRN #30 tab.dis 07/09/18 [Rx] Acetaminophen/oxyCODONE [Percocet 325-5 MG] 1 each PO Q4HR 02/20/19 [History] Magnesium Hydroxide [Milk of Magnesia] 30 ml PO Q72H PRN 02/20/19 [History] Omeprazole 20 mg PO ACBREAKFAST #30 cap.cr 02/21/19 [Rx] Referrals: Kraig Hamilton NP [Primary Care Provider] - 02/25/19 2:00 pm (moved Elmer's appt to 2:30) - Patient Data Vitals - Most Recent: Last Vital Signs Temp 37.2 C 02/21/19 06:52 Pulse 66 02/21/19 06:52 Resp 20 02/21/19 06:52 BP 144/64 H 02/21/19 08:56 Pulse Ox 98 02/21/19 06:52 Orthostatic Blood Pressure [ 127/50 Standing] Orthostatic Blood Pressure [ 121/50 Sitting] Weight - Most Recent: 49.895 kg I&O - Last 24 hours: Intake & Output 02/20/19 02/21/19 02/21/19 22:59 06:59 14:59 Intake Total 360 Output Total 480 Balance -120 Lab Results - Last 24 hrs: Laboratory Results - last 24 hr 02/20/19 02/20/19 02/20/19 Range/Units 15:00 15:00 15:10 WBC 6.67 (5.00-10.00) 10^3/uL RBC 3.79 L (3.80-5.50) 10^6/uL Hgb 8.8 L (12.0-16.0) g/dL Hct 28.4 L (37.0-47.0) % MCV 74.9 L D (82.0-92.0) fL MCH 23.2 L (27.0-31.0) pg MCHC 31.0 L (32.0-36.0) g/dL RDW 17.0 H (11.5-14.5) % Plt Count 452 H D (150-400) 10^3/uL MPV 8.1 (7.4-10.4) fL Immature Gran % (Auto) 0.1 (0.0-5.0) % Neut % (Auto) 75.0 H (50.0-70.0) % Lymph % (Auto) 14.8 L (20.0-40.0) % [place] % (Auto) 7.5 (2.0-8.0) % Eos % (Auto) 2.2 (1.0-3.0) % Baso % (Auto) 0.4 (0.0-1.0) % Immature Gran # (Auto) 0.01 (0.00-0.50) 10^3/uL Neut # (Auto) 4.99 (2.50-7.00) 10^3/uL Lymph # (Auto) 0.99 L (1.00-4.00) 10^3/uL [place] # (Auto) 0.50 (0.10-0.80) 10^3/uL Eos # (Auto) 0.15 (0.10-0.30) 10^3/uL Baso # (Auto) 0.03 (0.00-0.10) 10^3/uL Helmet Cells Occasional Elliptocytes Few Sodium 133 L (136-145) mmol/L Potassium 3.8 (3.3-5.3) mmol/L Chloride 94 L (98-115) mmol/L Carbon Dioxide 27.6 (21.0-32.0) mmol/L Anion Gap 15.2 H (5-15) mmol/L BUN 23 (6-25) mg/dL Creatinine 0.67 (0.51-1.17) mg/dL Est Cr Clr Drug Dosing 40.89 mL/min Estimated GFR (MDRD) > 60 mL/min Glucose 133 H (75 - 99) mg/dL Calcium 9.6 (8.7-10.3) mg/dL Creatine Kinase 20 L (26-276) U/L CK-MB (CK-2) 0.70 (0.00-4.30) ng/mL Troponin I 0.04 (0.00-0.070) ng/mL B-Natriuretic Peptide 131 H (0-100) pg/mL Blood Type Gel Antibody Screen 02/20/19 02/21/19 02/21/19 Range/Units 21:00 07:15 07:15 WBC 5.13 (5.00-10.00) 10^3/uL RBC 3.94 (3.80-5.50) 10^6/uL Hgb 9.1 L (12.0-16.0) g/dL Hct 29.6 L (37.0-47.0) % MCV 75.1 L (82.0-92.0) fL MCH 23.1 L (27.0-31.0) pg MCHC 30.7 L (32.0-36.0) g/dL RDW 17.2 H (11.5-14.5) % Plt Count 487 H (150-400) 10^3/uL MPV 8.2 (7.4-10.4) fL Immature Gran % (Auto) 0.2 (0.0-5.0) % Neut % (Auto) 71.5 H (50.0-70.0) % Lymph % (Auto) 17.2 L (20.0-40.0) % [place] % (Auto) 7.8 (2.0-8.0) % Eos % (Auto) 3.1 H (1.0-3.0) % Baso % (Auto) 0.2 (0.0-1.0) % Immature Gran # (Auto) 0.01 (0.00-0.50) 10^3/uL Neut # (Auto) 3.67 (2.50-7.00) 10^3/uL Lymph # (Auto) 0.88 L (1.00-4.00) 10^3/uL [place] # (Auto) 0.40 (0.10-0.80) 10^3/uL Eos # (Auto) 0.16 (0.10-0.30) 10^3/uL Baso # (Auto) 0.01 (0.00-0.10) 10^3/uL Helmet Cells Elliptocytes Sodium (136-145) mmol/L Potassium (3.3-5.3) mmol/L Chloride (98-115) mmol/L Carbon Dioxide (21.0-32.0) mmol/L Anion Gap (5-15) mmol/L BUN (6-25) mg/dL Creatinine (0.51-1.17) mg/dL Est Cr Clr Drug Dosing mL/min Estimated GFR (MDRD) mL/min Glucose (75 - 99) mg/dL Calcium (8.7-10.3) mg/dL Creatine Kinase (26-276) U/L CK-MB (CK-2) (0.00-4.30) ng/mL Troponin I 0.04 (0.00-0.070) ng/mL B-Natriuretic Peptide (0-100) pg/mL Blood Type A POSITIVE Gel Antibody Screen Negative 02/21/19 Range/Units 07:15 WBC (5.00-10.00) 10^3/uL RBC (3.80-5.50) 10^6/uL Hgb (12.0-16.0) g/dL Hct (37.0-47.0) % MCV (82.0-92.0) fL MCH (27.0-31.0) pg MCHC (32.0-36.0) g/dL RDW (11.5-14.5) % Plt Count (150-400) 10^3/uL MPV (7.4-10.4) fL Immature Gran % (Auto) (0.0-5.0) % Neut % (Auto) (50.0-70.0) % Lymph % (Auto) (20.0-40.0) % [place] % (Auto) (2.0-8.0) % Eos % (Auto) (1.0-3.0) % Baso % (Auto) (0.0-1.0) % Immature Gran # (Auto) (0.00-0.50) 10^3/uL Neut # (Auto) (2.50-7.00) 10^3/uL Lymph # (Auto) (1.00-4.00) 10^3/uL [place] # (Auto) (0.10-0.80) 10^3/uL Eos # (Auto) (0.10-0.30) 10^3/uL Baso # (Auto) (0.00-0.10) 10^3/uL Helmet Cells Elliptocytes Sodium 136 (136-145) mmol/L Potassium 4.2 (3.3-5.3) mmol/L Chloride 95 L (98-115) mmol/L Carbon Dioxide 28.4 (21.0-32.0) mmol/L Anion Gap 16.8 H (5-15) mmol/L BUN 15 (6-25) mg/dL Creatinine 0.64 (0.51-1.17) mg/dL Est Cr Clr Drug Dosing 42.80 mL/min Estimated GFR (MDRD) > 60 mL/min Glucose 97 (75 - 99) mg/dL Calcium 9.3 (8.7-10.3) mg/dL Creatine Kinase (26-276) U/L CK-MB (CK-2) (0.00-4.30) ng/mL Troponin I 0.04 (0.00-0.070) ng/mL B-Natriuretic Peptide (0-100) pg/mL Blood Type Gel Antibody Screen Med Orders - Current: Current Medications Amlodipine Besylate (Norvasc) 10 mg PO DAILY [facility] Last Admin: 02/21/19 08:56 Dose: 10 mg Aspirin (Ecotrin) 325 mg PO DAILY [facility] Last Admin: 02/21/19 08:56 Dose: 325 mg Cholecalciferol (Vitamin D3) 5,000 units PO DAILY [facility] Last Admin: 02/21/19 08:56 Dose: 5,000 units Furosemide (Lasix) 20 mg PO DAILY PRN PRN Reason: Edema Levofloxacin (Levaquin) 250 mg PO BEDTIME [facility] Magnesium Hydroxide (Milk Of Magnesia) 30 ml PO Q72H PRN PRN Reason: Constipation Nitroglycerin (Nitro-Bid 2%) 1 gm TOP Q6H [facility] Last Admin: 02/21/19 05:03 Dose: 1 gm Omeprazole (Omeprazole) 20 mg PO ACBREAKFAST [facility] Last Admin: 02/21/19 06:30 Dose: 20 mg Oxycodone/Acetaminophen (Percocet 325-5 Mg) 1 tab PO Q4HR [facility] Last Admin: 02/21/19 06:28 Dose: 1 tab Sodium Chloride (Saline Flush) 10 ml FLUSH Q8HR PRN PRN Reason: keep vein open Discontinued Medications Aspirin (Aspirin) 324 mg PO ONETIME ONE Stop: 02/20/19 14:47 Last Admin: 02/20/19 14:50 Dose: 324 mg Ceftriaxone Sodium (Rocephin) 1 gm IVPUSH ONETIME ONE Stop: 02/20/19 16:23 Last Admin: 02/20/19 18:02 Dose: 1 gm Famotidine (Pepcid) 40 mg PO ONETIME ONE Stop: 02/20/19 23:16 Last Admin: 02/20/19 23:34 Dose: 40 mg Levofloxacin (Levaquin) 500 mg PO NOW ONE Stop: 02/20/19 22:46 Last Admin: 02/20/19 23:35 Dose: 500 mg Nitroglycerin (Nitrostat) 0.4 mg SL ONETIME ONE Stop: 02/20/19 15:20 Last Admin: 02/20/19 15:25 Dose: 0.4 mg
[2019-02-21] MEDS ORDERED: Levofloxacin 500 MG Tab PO SCH (21:00)
== END 2019-02-21 12:25 | disposition home or self-care (01) ==
LOC: KA.ED 14:26 → KA.MS 16:23
PROVIDERS: ADMIT Physician Assistant Medical; ATTEND Family Medicine
DX: R00.0 Tachycardia, unspecified (principal); J44.1 Chronic obstructive pulmonary disease with (acute) exacerbation; I10 Essential (primary) hypertension; E87.1 Hypo-osmolality and hyponatremia; Z88.1 Allergy status to other antibiotic agents; Z88.5 Allergy status to narcotic agent; Z88.2 Allergy status to sulfonamides; Z99.81 Dependence on supplemental oxygen; Z79.899 Other long term (current) drug therapy
CPT/HCPCS: 36415; 71046; 80048; 82550; 82553; 82728; 83540; 83550; 83880; 84484; 85025; 86850; 86900; 86901; 87070; 87205; 93005; 96374; 99284; 99285-25; A9270-GY; G0378; J0696

== ENCOUNTER 2019-04-26 18:50 | Emergency (ER) | payer MEDICARE, OTHER ==
--- NOTE | 2019-04-26 18:54 | EDM.PDOC ---
ED HPI GENERAL MEDICAL PROBLEM - General Chief Complaint: General Stated Complaint: POSSIBLE UTI Time Seen by Provider: 04/26/19 18:54 Source of Information: Reports: Patient, Family History Limitations: Reports: No Limitations - History of Present Illness INITIAL COMMENTS - FREE TEXT/NARRATIVE: 88 YO WF presents to ER complaining of urinary frequency and urgency which began 2 days ago. Pt reports associated nausea without vomiting. Pt denies fever /chills, no back pain, no abdominal pain. Pt with history of UTIs in the past and states these symptoms are similar to UTIs in the past. Pt appears nontoxic and in NAD. Onset Date: 04/25/19 Duration: Day(s): (2) Location: Reports: Generalized Quality: Reports: Burning Severity: Mild Improves with: Reports: None Worsens with: Reports: None Associated Symptoms: Reports: No Other Symptoms, Nausea/Vomiting. Denies: Fever /Chills - Related Data Allergies Allergy/AdvReac Type Severity Reaction Status Date / Time ciprofloxacin [From Cipro] Allergy Diarrhea Verified 02/20/19 14:40 hydrocodone Allergy Dizziness Verified 02/20/19 14:40 Sulfa (Sulfonamide Allergy Rash Verified 02/20/19 14:40 Antibiotics) Home Meds: Home Meds Cholecalciferol (Vitamin D3) [Vitamin D] 5,000 unit PO DAILY 07/07/18 [History] Furosemide 20 mg PO DAILY PRN 07/07/18 [History] amLODIPine Besylate [Amlodipine Besylate] 10 mg PO DAILY 07/07/18 [History] Ondansetron [Zofran ODT] 4 mg PO Q6H PRN #30 tab.dis 07/09/18 [Rx] Acetaminophen/oxyCODONE [Percocet 325-5 MG] 1 each PO Q4HR 02/20/19 [History] Magnesium Hydroxide [Milk of Magnesia] 30 ml PO Q72H PRN 02/20/19 [History] Omeprazole 20 mg PO ACBREAKFAST #30 cap.cr 02/21/19 [Rx] Cephalexin [Keflex] 500 mg PO Q6HR #20 capsule 04/26/19 [Rx] Past Medical History HEENT History: Reports: Glaucoma, Hard of Hearing Cardiovascular History: Reports: Heart Murmur, Hypertension, Other (See Below) Other Cardiovascular History: episode of a-fib Respiratory History: Reports: Other (See Below) Other Respiratory History: 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 home O2 -2L at [facility] Gastrointestinal History: Reports: GERD, GI Bleed, Hiatal Hernia, Other (See Below) Other Gastrointestinal History: hx C-diff Genitourinary History: Reports: None RN TRANSITIONAL History: Reports: , Other (See Below) Other RN TRANSITIONAL History: 10 childern Musculoskeletal History: Reports: RA Other Musculoskeletal History: steroid inj into to shoulder 1 month ago. torn rotator cuff R Hematologic History: Reports: Anemia - Infectious Disease History Infectious Disease History: Reports: C-Difficile, Chicken Pox, Measles - Past Surgical History GI Surgical History: Reports: None, Colonoscopy, EGD Social & Family History - Family History Family Medical History: Noncontributory - Caffeine Use Caffeine Use: Reports: Coffee ED ROS GENERAL - Review of Systems Review Of Systems: See Below Constitutional: Reports: No Symptoms HEENT: Reports: No Symptoms Respiratory: Reports: No Symptoms Cardiovascular: Reports: No Symptoms Endocrine: Reports: No Symptoms GI/Abdominal: Reports: Anorexia, Nausea. Denies: Abdominal Pain, Vomiting : Reports: No Symptoms Musculoskeletal: Reports: No Symptoms Skin: Reports: No Symptoms Neurological: Reports: No Symptoms Psychiatric: Reports: No Symptoms Hematologic/Lymphatic: Reports: No Symptoms Immunologic: Reports: No Symptoms ED EXAM, GENERAL - Physical Exam Exam: See Below Exam Limited By: No Limitations General Appearance: Alert, WD/WN, No Apparent Distress Head: Atraumatic, Normocephalic Neck: Normal Inspection, Supple, Non-Tender, Full Range of Motion Respiratory/Chest: No Respiratory Distress, Lungs Clear, Normal Breath Sounds, No Accessory Muscle Use, Chest Non-Tender Cardiovascular: Normal Peripheral Pulses, Regular Rate, Rhythm, No Edema, No Gallop, No JVD, No Murmur, No Rub GI/Abdominal: Normal Bowel Sounds, Soft, Non-Tender, No Organomegaly, No Distention, No Abnormal Bruit, No Mass Back Exam: Normal Inspection, Full Range of Motion, NT Extremities: Normal Inspection, Normal Range of Motion, Non-Tender, Normal Capillary Refill, No Pedal Edema Neurological: Alert, Oriented, CN II-XII Intact, Normal Cognition, Normal Gait, Normal Reflexes, No Motor/Sensory Deficits Psychiatric: Normal Affect, Normal Mood Skin Exam: Warm, Dry, Intact, Normal Color, No Rash Lymphatic: No Adenopathy Course - Orders/Labs/Meds Orders: Active Orders 24 hr Category Date Time Status CULTURE URINE [RM] Stat Lab 04/26/19 18:55 Received Labs: Laboratory Tests 04/26/19 Range/Units 18:55 Specimen Type Urincc Urine Color Light yellow (YELLOW) Urine Appearance Clear (CLEAR) Urine pH 5.5 (5.0-9.0) Ur Specific [place] <= 1.005 (1.005-1.030) Urine Protein Trace H (NEGATIVE) mg/dL Urine Glucose (UA) Negative (NEGATIVE) mg/dL Urine Ketones Negative (NEGATIVE) mg/dL Urine Occult Blood Negative (NEGATIVE) Urine Nitrite Negative (NEGATIVE) Urine Bilirubin Negative (NEGATIVE) Urine Urobilinogen 0.2 (0.2-1.0) E.U./dL Ur Leukocyte Esterase Trace H (NEGATIVE) Urine RBC 0-5 (0-5) /HPF Urine WBC 5-10 H (0-5) /HPF Ur Epithelial Cells Moderate H /LPF Urine Bacteria Occasional (NONE TO FEW) /HPF Departure - Departure Time of Disposition: 19:51 Disposition: Home, Self-Care 01 Condition: Good Clinical Impression: UTI, Urinary tract infectious disease - Discharge Information Prescriptions: Cephalexin [Keflex] 500 mg PO Q6HR #20 capsule Instructions: Urinary Tract Infection, Adult, [id number] Referrals: Kraig Hamilton AFTER SCHOOL COORDINATOR [Primary Care Provider] - Forms: ED Department Discharge Additional Instructions: 1. Discharge home 2. keflex 500mg PO Q6 x 7 days 3. zofran 4mg ODT Q8 PRN nausea 4. follow up with PCP in 48 hours for culture results 5. Return to ER for worsening symptoms- fever >101, vomiting, abdominal or severe back pain - My Orders Last 24 Hours: My Active Orders 04/26/19 18:55 CULTURE URINE [RM] Stat - Assessment/Plan Last 24 Hours: My Active Orders 04/26/19 18:55 CULTURE URINE [RM] Stat Assessment:: 1. uncomplicated UTI Plan: 1. Discharge home 2. keflex 500mg PO Q6 x 7 days 3. zofran 4mg ODT Q8 PRN nausea 4. follow up with PCP in 48 hours for culture results 5. Return to ER for worsening symptoms- fever >101, vomiting, abdominal or severe back pain
[2019-04-26] MEDS: Cephalexin 250 MG Cap PO ONE (22:01)
[2019-04-26] MEDS: Ondansetron 4 MG Tab.DIS PO ONE (22:02)
== END 2019-04-26 20:20 | disposition home or self-care (01) ==
LOC: KA.ED 18:50
DX: N39.0 Urinary tract infection, site not specified (principal); I10 Essential (primary) hypertension; K21.9 Gastro-esophageal reflux disease without esophagitis; M06.9 Rheumatoid arthritis, unspecified; Z86.2 Personal history of diseases of the blood and blood-forming organs and certain disorders involving the immune mechanism; Z88.1 Allergy status to other antibiotic agents; Z88.2 Allergy status to sulfonamides; Z88.8 Allergy status to other drugs, medicaments and biological substances
CPT/HCPCS: 81001; 87086; 99283; A9270-GY

== ENCOUNTER 2019-05-22 22:30 | Emergency (ER) | payer MEDICARE, OTHER ==
[2019-05-22 23:34] LABS: ANION GAP 15.2 mmol/L (5-15); CHLORIDE,CL 94 mmol/L (98-115); SODIUM,NA 131 mmol/L (136-145)
--- NOTE | 2019-05-22 23:53 | EDM.PDOC ---
ED HPI GENERAL MEDICAL PROBLEM - General Chief Complaint: Gastrointestinal Problem Stated Complaint: NAUSEA/VOMITING/DIARRHEA Time Seen by Provider: 05/22/19 22:57 Source of Information: Reports: Patient, Family (daughter) History Limitations: Reports: No Limitations - History of Present Illness INITIAL COMMENTS - FREE TEXT/NARRATIVE: Patient presents via ambulance with vomiting x3 and diarrhea x4-5 since noon today. She was started on IV NS and zofran per EMS and is feeling better. Treatments [employer] P[employer]AK[employer]: Reports: IV/IO, Oxygen, See EMS Report Mid-Sternal Chest Pain Score (Numeric/FACES): 3 - Related Data Allergies Allergy/AdvReac Type Severity Reaction Status Date / Time ciprofloxacin [From Cipro] Allergy Diarrhea Verified 04/26/19 21:29 Sulfa (Sulfonamide Allergy Rash Verified 04/26/19 21:29 Antibiotics) Home Meds: Home Meds Cholecalciferol (Vitamin D3) [Vitamin D] 5,000 unit PO DAILY 07/07/18 [History] Furosemide 20 mg PO DAILY PRN 07/07/18 [History] amLODIPine Besylate [Amlodipine Besylate] 10 mg PO DAILY 07/07/18 [History] Magnesium Hydroxide [Milk of Magnesia] 30 ml PO Q72H PRN 02/20/19 [History] Omeprazole 20 mg PO ACBREAKFAST #30 cap.cr 02/21/19 [Rx] Hydrocodone/Acetaminophen [Hydrocodon-Acetaminoph 7.5-325] 1 each PO QID PRN [History] Past Medical History HEENT History: Reports: Glaucoma, Hard of Hearing Cardiovascular History: Reports: Heart Murmur, Hypertension, Other (See Below) Other Cardiovascular History: episode of a-fib Respiratory History: Reports: Other (See Below) Other Respiratory History: 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 home O2 -2L at [facility] Gastrointestinal History: Reports: GERD, GI Bleed, Hiatal Hernia, Other (See Below) Other Gastrointestinal History: hx C-diff Genitourinary History: Reports: UTI, Recurrent PATIENT EXPERIENCE COORDINATOR History: Reports: , Other (See Below) Other PATIENT EXPERIENCE COORDINATOR History: 10 childern Musculoskeletal History: Reports: RA Other Musculoskeletal History: steroid inj into to shoulder. torn rotator cuff R Hematologic History: Reports: Anemia - Infectious Disease History Infectious Disease History: Reports: C-Difficile, Chicken Pox, Measles - Past Surgical History GI Surgical History: Reports: Colonoscopy, EGD Social & Family History - Family History Family Medical History: Noncontributory - Caffeine Use Caffeine Use: Reports: Coffee ED ROS GENERAL - Review of Systems Review Of Systems: See Below Constitutional: Reports: Weakness (general). Denies: Fever, Chills HEENT: Reports: No Symptoms Respiratory: Denies: Shortness of Breath, Cough Cardiovascular: Denies: Chest Pain, Lightheadedness, Syncope Endocrine: Reports: No Symptoms GI/Abdominal: Reports: Diarrhea, Nausea, Vomiting. Denies: Abdominal Pain, Black Stool, Bloody Stool, Constipation, Hematemesis : Denies: Discharge, Dysuria, Flank Pain, Hematuria Musculoskeletal: Reports: No Symptoms Skin: Denies: Cyanosis, Jaundice, Mottled, Pallor, Diaphoresis Neurological: Denies: Confusion, Dizziness, Headache, Seizure, Syncope, Trouble Speaking Psychiatric: Denies: Agitation, Anxiety, Confusion ED EXAM, GI/ABD - Physical Exam Exam: See Below Exam Limited By: No Limitations General Appearance: Alert, WD/WN, No Apparent Distress Eyes: Bilateral: Normal Appearance, EOMI Ears: Normal External Exam, Hearing Grossly Normal Nose: Normal Inspection, No Blood Throat/Mouth: Normal Inspection, Normal Lips, Normal Voice, No Airway Compromise Head: Atraumatic, Normocephalic Neck: Normal Inspection, Full Range of Motion Respiratory/Chest: No Respiratory Distress, Lungs Clear Cardiovascular: Normal Peripheral Pulses, Regular Rate, Rhythm, No Murmur GI/Abdominal Exam: Normal Bowel Sounds, Soft, Non-Tender, No Organomegaly, No Distention Back Exam: Normal Inspection, Full Range of Motion. No: CVA Tenderness (L), CVA Tenderness (R) Extremities: Normal Inspection, Normal Range of Motion, Non-Tender, No Pedal Edema Neurological: Alert, Oriented, Normal Cognition, No Motor/Sensory Deficits Psychiatric: Normal Affect, Normal Mood Skin Exam: Warm, Dry, Intact, Normal Color, No Rash Course - Vital Signs Last Recorded V/S: Last Vital Signs Temp 98.5 F 05/22/19 22:42 Pulse 89 05/22/19 22:42 Resp 21 H 05/22/19 22:42 BP 165/63 H 05/22/19 22:42 Pulse Ox 96 05/22/19 22:42 - Orders/Labs/Meds Labs: Laboratory Tests 05/22/19 05/22/19 05/22/19 Range/Units 23:08 23:09 23:30 WBC 5.10 (5.00-10.00) 10^3/uL RBC 4.47 (3.80-5.50) 10^6/uL Hgb 9.9 L (12.0-16.0) g/dL Hct 32.6 L (37.0-47.0) % MCV 72.9 L (82.0-92.0) fL MCH 22.1 L (27.0-31.0) pg MCHC 30.4 L (32.0-36.0) g/dL RDW 17.0 H (11.5-14.5) % Plt Count 528 H (150-400) 10^3/uL MPV 8.6 (7.4-10.4) fL Immature Gran % (Auto) 0.2 (0.0-5.0) % Neut % (Auto) 78.4 H (50.0-70.0) % Lymph % (Auto) 13.7 L (20.0-40.0) % [place] % (Auto) 6.3 (2.0-8.0) % Eos % (Auto) 1.0 (1.0-3.0) % Baso % (Auto) 0.4 (0.0-1.0) % Immature Gran # (Auto) 0.01 (0.00-0.50) 10^3/uL Neut # (Auto) 4.00 (2.50-7.00) 10^3/uL Lymph # (Auto) 0.70 L (1.00-4.00) 10^3/uL [place] # (Auto) 0.32 (0.10-0.80) 10^3/uL Eos # (Auto) 0.05 L (0.10-0.30) 10^3/uL Baso # (Auto) 0.02 (0.00-0.10) 10^3/uL Target Cells Few Helmet Cells Few Elliptocytes 1+ slight Sodium 131 L (136-145) mmol/L Potassium 4.2 (3.3-5.3) mmol/L Chloride 94 L (98-115) mmol/L Carbon Dioxide 26.0 (21.0-32.0) mmol/L Anion Gap 15.2 H (5-15) mmol/L BUN 27 H (6-25) mg/dL Creatinine 0.53 (0.51-1.17) mg/dL Est Cr Clr Drug Dosing 51.69 mL/min Estimated GFR (MDRD) > 60 mL/min Glucose 216 H (75 - 99) mg/dL Calcium 10.3 (8.7-10.3) mg/dL Total Bilirubin 0.3 (0.2-1.0) mg/dL AST 20 (15-37) U/L ALT 17 (12-78) U/L Alkaline Phosphatase 77 (46-116) IU/L Troponin I 0.04 (0.00-0.070) ng/mL Total Protein 7.9 (6.4-8.2) g/dL Albumin 3.13 (3.00-4.80) g/dL Specimen Type Urincc Urine Color Light yellow (YELLOW) Urine Appearance Clear (CLEAR) Urine pH 7.0 (5.0-9.0) Ur Specific [place] 1.015 (1.005-1.030) Urine Protein 30 H (NEGATIVE) mg/dL Urine Glucose (UA) Negative (NEGATIVE) mg/dL Urine Ketones Negative (NEGATIVE) mg/dL Urine Occult Blood Trace-intact H (NEGATIVE) Urine Nitrite Negative (NEGATIVE) Urine Bilirubin Negative (NEGATIVE) Urine Urobilinogen 0.2 (0.2-1.0) E.U./dL Ur Leukocyte Esterase Trace H (NEGATIVE) Urine RBC 5-10 H (0-5) /HPF Urine WBC 5-10 H (0-5) /HPF Ur Epithelial Cells Moderate H /LPF Urine Bacteria Few (NONE TO FEW) /HPF Meds: Medications Discontinued Medications Generic Name Dose Route Start Last Admin Trade Name Freq PRN Reason Stop Dose Admin Ondansetron HCl 16 mg 05/23/19 00:11 Zofran Odt PO 05/23/19 00:12 ONETIME ONE - Re-Assessments/Exams Free Text/Narrative Re-Assessment/Exam: 05/23/19 00:11 Labs all good. After a liter of fluids is in patient was assisted with walking across the room and evaluated for ambulation ability. She and her daughter would like her to stay in the hospital for a couple days but I don't find any good reason or need for this. I did advise follow up with her PCP tomorrow or Sunday for recheck and encourage drinking more water. Sending home with Zofran. Discharged in stable condition. Departure - Departure Time of Disposition: 00:06 Disposition: Home, Self-Care 01 Condition: Good Clinical Impression: Dehydration, Nausea, vomiting, and diarrhea - Discharge Information Instructions: Nausea and Vomiting, Adult, [id number], Diarrhea, Adult, Easy- to-Read Referrals: Kraig Hamilton CONTROL ELECTRICIAN [Primary Care Provider] - Forms: ED Department Discharge Additional Instructions: 1. Drink 8 cups of water daily. 2. Take Zofran up to four times a day to control nausea. 3. Follow up with your PCP tomorrow or Sunday for recheck.
[2019-05-23] MEDS ORDERED: Ondansetron 4 MG Tab.DIS PO ONE (00:11)
== END 2019-05-23 00:25 | disposition home or self-care (01) ==
LOC: KA.ED 22:30
DX: E86.0 Dehydration (principal); R11.2 Nausea with vomiting, unspecified; R19.7 Diarrhea, unspecified; I10 Essential (primary) hypertension; K21.9 Gastro-esophageal reflux disease without esophagitis; M06.9 Rheumatoid arthritis, unspecified; Z79.899 Other long term (current) drug therapy; Z86.2 Personal history of diseases of the blood and blood-forming organs and certain disorders involving the immune mechanism; Z88.1 Allergy status to other antibiotic agents; Z88.2 Allergy status to sulfonamides
CPT/HCPCS: 36415; 80053; 81001; 84484; 85025; 99284; A9270-GY

== ENCOUNTER 2019-07-02 18:00 | Emergency (ER) | payer MEDICARE, OTHER ==
[2019-07-02 19:15] LABS: CHLORIDE,CL 93 mmol/L (98-115); SODIUM,NA 131 mmol/L (136-145)
--- NOTE | 2019-07-02 19:20 | EDM.PDOC ---
ED HPI GENERAL MEDICAL PROBLEM - General Chief Complaint: General Stated Complaint: ? BLADDER INFECTION, ? BOWEL OBSTRUCTION Time Seen by Provider: 07/02/19 18:58 Source of Information: Reports: Patient, Family (dtr) History Limitations: Reports: No Limitations - History of Present Illness INITIAL COMMENTS - FREE TEXT/NARRATIVE: Patient presents with low abdominal pain that started about 1300 (6 hrs ago). She says she drinks at least 6 cups of water daily. She isn't eating very much and fights constipation. She has tried prune juice and milk of mag; also had an enema today. This produced 3 very small bowel movements, twice at home and once here in ER today. Daughter says the constipation is likely due to her chronic hydrocodone use. Lower Abdomen Pain Score (Numeric/FACES): 6 - Related Data Allergies Allergy/AdvReac Type Severity Reaction Status Date / Time ciprofloxacin [From Cipro] Allergy Diarrhea Verified 07/02/19 18:31 Sulfa (Sulfonamide Allergy Rash Verified 07/02/19 18:31 Antibiotics) Home Meds: Home Meds Cholecalciferol (Vitamin D3) [Vitamin D] 5,000 unit PO DAILY 07/07/18 [History] Furosemide 20 mg PO DAILY PRN 07/07/18 [History] amLODIPine Besylate [Amlodipine Besylate] 10 mg PO DAILY 07/07/18 [History] Magnesium Hydroxide [Milk of Magnesia] 30 ml PO Q72H PRN 02/20/19 [History] Hydrocodone/Acetaminophen [Hydrocodon-Acetaminoph 7.5-325] 1 each PO QID PRN [History] Non-Formulary Medication [NF Drug] 1 each .XX ASDIRECTED 05/23/19 [History] Omeprazole 20 mg PO ACBREAKFAST PRN 07/02/19 [History] Past Medical History HEENT History: Reports: Glaucoma, Hard of Hearing Cardiovascular History: Reports: Heart Murmur, Hypertension, Other (See Below) Other Cardiovascular History: episode of a-fib Respiratory History: Reports: Other (See Below) Other Respiratory History: 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 torn rotator cuff R Hematologic History: Reports: Anemia - Infectious Disease History Infectious Disease History: Reports: C-Difficile, Chicken Pox, Measles - Past Surgical History GI Surgical History: Reports: Colonoscopy, EGD Social & Family History - Family History Family Medical History: Noncontributory - Tobacco Use Smoking Status *Q: Never Smoker Second Hand Smoke Exposure: No - Caffeine Use Caffeine Use: Reports: Coffee - Recreational Drug Use Recreational Drug Use: Yes Recreational Drug Type: Reports: Marijuana/Hashish Recreational Drug Use Frequency: Daily ED ROS GENERAL - Review of Systems Review Of Systems: See Below Constitutional: Reports: Decreased Appetite. Denies: Fever, Chills, Malaise, Weakness HEENT: Denies: Throat Pain Respiratory: Denies: Shortness of Breath Cardiovascular: Denies: Chest Pain GI/Abdominal: Reports: Abdominal Pain, Constipation. Denies: Vomiting : Denies: Dysuria, Flank Pain Musculoskeletal: Reports: No Symptoms Skin: Denies: Cyanosis, Jaundice, Mottled, Pallor, Diaphoresis Neurological: Denies: Dizziness, Headache, Seizure, Syncope, Trouble Speaking Psychiatric: Denies: Agitation, Confusion ED EXAM, GENERAL - Physical Exam Exam: See Below Exam Limited By: No Limitations General Appearance: Alert, WD/WN, No Apparent Distress Eye Exam: Bilateral Eye: EOMI, Normal Inspection, PERRL Ears: Normal External Exam, Hearing Grossly Normal Nose: Normal Inspection, No Blood Throat/Mouth: Normal Inspection, Normal Lips, Normal Voice, No Airway Compromise Head: Atraumatic, Normocephalic Neck: Normal Inspection, Full Range of Motion Respiratory/Chest: No Respiratory Distress, Crackles (mild atelectasis bilat due to fibrosis likely.) Cardiovascular: Normal Peripheral Pulses, Regular Rate, Rhythm, Systolic Murmur GI/Abdominal: Normal Bowel Sounds, Soft, No Organomegaly, No Distention, Tender (mid to RUQ). No: Distended, Guarding, Rigid Rectal (Female) Exam: Normal Exam, Normal Rectal Tone, Hemorrhoids (soft external). No: Black Stool, Bloody Stool, Fecal Impaction, Perirectal Abscess, Rectal Fissure, Tenderness Back Exam: No: CVA Tenderness (L), CVA Tenderness (R) Extremities: Normal Inspection Neurological: Alert, Oriented, No Motor/Sensory Deficits Psychiatric: Normal Affect, Normal Mood Skin Exam: Warm, Dry, Intact, Normal Color, No Rash Course - Vital Signs Last Recorded V/S: Last Vital Signs Temp 98.1 F 07/02/19 18:26 Pulse 80 07/02/19 18:26 Resp 20 07/02/19 18:26 BP 159/76 H 07/02/19 18:26 Pulse Ox 91 L 07/02/19 18:26 - Orders/Labs/Meds Orders: Active Orders 24 hr Category Date Time Status CULTURE URINE [RM] Stat Lab 07/02/19 18:43 Received Labs: Laboratory Tests 07/02/19 07/02/19 07/02/19 Range/Units 18:43 18:45 18:45 WBC 8.27 (5.00-10.00) 10^3/uL RBC 4.48 (3.80-5.50) 10^6/uL Hgb 10.2 L (12.0-16.0) g/dL Hct 32.1 L (37.0-47.0) % MCV 71.7 L (82.0-92.0) fL MCH 22.8 L (27.0-31.0) pg MCHC 31.8 L (32.0-36.0) g/dL RDW 18.6 H (11.5-14.5) % Plt Count 473 H (150-400) 10^3/uL MPV 8.2 (7.4-10.4) fL Immature Gran % (Auto) 0.0 (0.0-5.0) % Neut % (Auto) 78.3 H (50.0-70.0) % Lymph % (Auto) 13.7 L (20.0-40.0) % [place] % (Auto) 7.0 (2.0-8.0) % Eos % (Auto) 0.8 L (1.0-3.0) % Baso % (Auto) 0.2 (0.0-1.0) % Immature Gran # (Auto) 0.00 (0.00-0.50) 10^3/uL Neut # (Auto) 6.47 (2.50-7.00) 10^3/uL Lymph # (Auto) 1.13 (1.00-4.00) 10^3/uL [place] # (Auto) 0.58 (0.10-0.80) 10^3/uL Eos # (Auto) 0.07 L (0.10-0.30) 10^3/uL Baso # (Auto) 0.02 (0.00-0.10) 10^3/uL Microcytosis 1+ slight Sodium 131 L (136-145) mmol/L Potassium 4.2 (3.3-5.3) mmol/L Chloride 93 L (98-115) mmol/L Carbon Dioxide 27.2 (21.0-32.0) mmol/L Anion Gap 15.0 (5-15) mmol/L BUN 18 (6-25) mg/dL Creatinine 0.54 (0.51-1.17) mg/dL Est Cr Clr Drug Dosing 50.73 mL/min Estimated GFR (MDRD) > 60 mL/min Glucose 137 H (75 - 99) mg/dL Calcium 9.9 (8.7-10.3) mg/dL Total Bilirubin 0.4 (0.2-1.0) mg/dL AST 20 (15-37) U/L ALT 20 (12-78) U/L Alkaline Phosphatase 80 (46-116) IU/L Total Protein 8.0 (6.4-8.2) g/dL Albumin 3.40 (3.00-4.80) g/dL Lipase (73-393) U/L Specimen Type Urine void Urine Color Yellow (YELLOW) Urine Appearance Slightly cloudy H (CLEAR) Urine pH 5.5 (5.0-9.0) Ur Specific Barre 1.015 (1.005-1.030) Urine Protein 100 H (NEGATIVE) mg/dL Urine Glucose (UA) Negative (NEGATIVE) mg/dL Urine Ketones Negative (NEGATIVE) mg/dL Urine Occult Blood Trace-intact H (NEGATIVE) Urine Nitrite Negative (NEGATIVE) Urine Bilirubin Negative (NEGATIVE) Urine Urobilinogen 0.2 (0.2-1.0) E.U./dL Ur Leukocyte Esterase Trace H (NEGATIVE) Urine RBC 0-5 (0-5) /HPF Urine WBC 5-10 H (0-5) /HPF Ur Epithelial Cells Moderate H /LPF Urine Bacteria Few (NONE TO FEW) /HPF 07/02/19 Range/Units 18:45 WBC (5.00-10.00) 10^3/uL RBC (3.80-5.50) 10^6/uL Hgb (12.0-16.0) g/dL Hct (37.0-47.0) % MCV (82.0-92.0) fL MCH (27.0-31.0) pg MCHC (32.0-36.0) g/dL RDW (11.5-14.5) % Plt Count (150-400) 10^3/uL MPV (7.4-10.4) fL Immature Gran % (Auto) (0.0-5.0) % Neut % (Auto) (50.0-70.0) % Lymph % (Auto) (20.0-40.0) % [place] % (Auto) (2.0-8.0) % Eos % (Auto) (1.0-3.0) % Baso % (Auto) (0.0-1.0) % Immature Gran # (Auto) (0.00-0.50) 10^3/uL Neut # (Auto) (2.50-7.00) 10^3/uL Lymph # (Auto) (1.00-4.00) 10^3/uL [place] # (Auto) (0.10-0.80) 10^3/uL Eos # (Auto) (0.10-0.30) 10^3/uL Baso # (Auto) (0.00-0.10) 10^3/uL Microcytosis Sodium (136-145) mmol/L Potassium (3.3-5.3) mmol/L Chloride (98-115) mmol/L Carbon Dioxide (21.0-32.0) mmol/L Anion Gap (5-15) mmol/L BUN (6-25) mg/dL Creatinine (0.51-1.17) mg/dL Est Cr Clr Drug Dosing mL/min Estimated GFR (MDRD) mL/min Glucose (75 - 99) mg/dL Calcium (8.7-10.3) mg/dL Total Bilirubin (0.2-1.0) mg/dL AST (15-37) U/L ALT (12-78) U/L Alkaline Phosphatase (46-116) IU/L Total Protein (6.4-8.2) g/dL Albumin (3.00-4.80) g/dL Lipase 94 (73-393) U/L Specimen Type Urine Color (YELLOW) Urine Appearance (CLEAR) Urine pH (5.0-9.0) Ur Specific [place] (1.005-1.030) Urine Protein (NEGATIVE) mg/dL Urine Glucose (UA) (NEGATIVE) mg/dL Urine Ketones (NEGATIVE) mg/dL Urine Occult Blood (NEGATIVE) Urine Nitrite (NEGATIVE) Urine Bilirubin (NEGATIVE) Urine Urobilinogen (0.2-1.0) E.U./dL Ur Leukocyte Esterase (NEGATIVE) Urine RBC (0-5) /HPF Urine WBC (0-5) /HPF Ur Epithelial Cells /LPF Urine Bacteria (NONE TO FEW) /HPF - Re-Assessments/Exams Free Text/Narrative Re-Assessment/Exam: 07/02/19 19:46 Labs okay. Abdominal xrays show hiatal hernia, cholecystolithiasis, colonic distention but no bowel obstruction; also pulmonary parenchymal fibrosis. Discussed findings with patient and daughter and options of CT tonight vs US tomorrow at [facility] to evaluate the gallbladder. They would like to do US tomorrow and save CT for after if necessary. They would like to have a soap suds enema now. 07/02/19 20:27 Enema successfully moved a fair amount of stool twice. Patient states she feels a lot better. Discussed findings and with patient and her daughter. Advised recheck tomorrow in clinic and ultrasound to evaluate gallbladder further. Patient discharged to home in stable condition. Departure - Departure Time of Disposition: 20:24 Disposition: Home, Self-Care 01 Condition: Good Clinical Impression: Constipation due to opioid therapy Cholecystolithiasis Qualifiers: Cholecystitis acuity: unspecified acuity Biliary obstruction: without biliary obstruction - Discharge Information Instructions: Cholelithiasis, Constipation, Adult Referrals: Kraig Hamilton PLASTER PATTERN CASTER [Primary Care Provider] - Forms: ED Department Discharge Additional Instructions: 1. Continue drinking 6-8 cups of water daily. 2. Continue the laxatives. 3. Call the clinic in the morning to get appointment with your PCP and Ultrasound to look at your gallbladder. - My Orders Last 24 Hours: My Active Orders 07/02/19 18:43 CULTURE URINE [RM] Stat - Assessment/Plan Last 24 Hours: My Active Orders 07/02/19 18:43 CULTURE URINE [RM] Stat
--- NOTE | 2019-07-02 19:31 | CR ---
[id number] RAD/RAD Abd Flat and Upright 2V Exam: RAD Abd Flat and Upright 2V Clinical Data: ABDOMINAL PAIN COMPARISON: CORRELATION IS MADE WITH THE EXAM OF JUNE 23, 2017 FINDINGS: There is significant pulmonary parenchymal fibrosis at the lung bases. There is a large hiatal hernia. There is distention of the splenic flexure. There is no free air. There is evidence of cholecystolithiasis. There is otherwise no bowel obstruction. IMPRESSION: COLONIC DISTENTION. CHOLECYSTOLITHIASIS. HIATAL HERNIA. PULMONARY PARENCHYMAL FIBROSIS. CONSIDER CAT SCAN ABDOMEN PELVIS IF FURTHER EVALUATION IS NEEDED. IF CAT SCAN IS OBTAINED, IV CONTRAST WOULD BE HELPFUL. Ruslan Brown MD 07/02/19 1243 Thank you for allowing us to participate in the care of your patient.
== END 2019-07-02 20:35 | disposition home or self-care (01) ==
LOC: KA.ED 18:00
DX: K59.03 Drug induced constipation (principal); T40.2X5A Adverse effect of other opioids, initial encounter; K80.20 Calculus of gallbladder without cholecystitis without obstruction; K21.9 Gastro-esophageal reflux disease without esophagitis; I10 Essential (primary) hypertension; M06.9 Rheumatoid arthritis, unspecified; Z88.1 Allergy status to other antibiotic agents; Z88.2 Allergy status to sulfonamides; Z79.899 Other long term (current) drug therapy
CPT/HCPCS: 36415; 74021; 80053; 81001; 83690; 85025; 87086; 99284; 99284-25

== ENCOUNTER 2019-07-03 15:00 | Emergency (ER) | payer MEDICARE, OTHER ==
[2019-07-03] MEDS ORDERED: Sodium Chloride 0.9% 1,000 ML IV ONE (16:06)
[2019-07-03] MEDS ORDERED: Iopamidol 755 Mg/ML 100 ML Bottle IV ONE (16:09)
[2019-07-03] MEDS ORDERED: Ondansetron 4 MG/2 ML SDV IVPUSH ONE (16:12)
[2019-07-03] MEDS ORDERED: Sodium Chloride 0.9% 50 ML IV SCH (16:15)
--- NOTE | 2019-07-03 16:40 | EDM.PDOC ---
ED HPI GENERAL MEDICAL PROBLEM - General Chief Complaint: General Stated Complaint: ABD PAIN Time Seen by Provider: 07/03/19 15:43 Source of Information: Reports: Patient, Family (daughter) History Limitations: Reports: No Limitations - History of Present Illness INITIAL COMMENTS - FREE TEXT/NARRATIVE: Patient presents with complaint of weakness, decreased appetite and abdominal pain. She was here in the ER 18 hours ago with similar symptoms and felt much better after an enema. At that time a CT was considered to evaluate abdominal pain but xrays had shown evidence of gall stones so they elected to do US in clinic today; also she had improved significantly after the enema. Today her daughter says she couldn't get the US today because she had drank a bottle of Boost. She brings her to ER to evaluate weakness and the continued abdominal pain. The pain is a little different today and not as strong as last night. She has drank 5-6 cups of water today but only ate half bowl of soup for lunch and the Boost. Abdomen Pain Score (Numeric/FACES): 8 - Related Data Allergies Allergy/AdvReac Type Severity Reaction Status Date / Time ciprofloxacin [From Cipro] Allergy Diarrhea Verified 07/03/19 15:09 Sulfa (Sulfonamide Allergy Rash Verified 07/03/19 15:09 Antibiotics) Home Meds: Home Meds Cholecalciferol (Vitamin D3) [Vitamin D] 5,000 unit PO DAILY 07/07/18 [History] Furosemide 20 mg PO DAILY PRN 07/07/18 [History] amLODIPine Besylate [Amlodipine Besylate] 10 mg PO DAILY 07/07/18 [History] Magnesium Hydroxide [Milk of Magnesia] 30 ml PO Q72H PRN 02/20/19 [History] Hydrocodone/Acetaminophen [Hydrocodon-Acetaminoph 7.5-325] 1 each PO QID [History] Non-Formulary Medication [NF Drug] 1 each .XX ASDIRECTED 05/23/19 [History] Omeprazole 20 mg PO ACBREAKFAST PRN 07/02/19 [History] Past Medical History HEENT History: Reports: Glaucoma, Hard of Hearing Cardiovascular History: Reports: Heart Murmur, Hypertension, Other (See Below) Other Cardiovascular History: episode of a-fib Respiratory History: Reports: Other (See Below) Other Respiratory History: 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 torn rotator cuff R Hematologic History: Reports: Anemia - Infectious Disease History Infectious Disease History: Reports: C-Difficile, Chicken Pox, Measles - Past Surgical History GI Surgical History: Reports: Colonoscopy, EGD Social & Family History - Family History Family Medical History: Noncontributory - Caffeine Use Caffeine Use: Reports: Coffee ED ROS GENERAL - Review of Systems Review Of Systems: See Below Constitutional: Reports: Weakness, Decreased Appetite. Denies: Fever, Chills HEENT: Reports: No Symptoms, Hearing Loss (chronic) Respiratory: Reports: No Symptoms Cardiovascular: Reports: No Symptoms GI/Abdominal: Reports: Abdominal Pain, Nausea (when she tries to eat more than a few bites of food). Denies: Diarrhea, Vomiting : Denies: Dysuria, Flank Pain Musculoskeletal: Reports: No Symptoms Skin: Denies: Cyanosis, Jaundice, Mottled, Pallor, Diaphoresis Neurological: Reports: Weakness (not focal). Denies: Headache, Seizure, Syncope , Trouble Speaking, Difficulty Walking Psychiatric: Denies: Agitation, Anxiety ED EXAM, GENERAL - Physical Exam Exam: See Below Exam Limited By: No Limitations General Appearance: Alert, WD/WN, No Apparent Distress Eye Exam: Bilateral Eye: EOMI, Normal Inspection, PERRL Ears: Normal External Exam Nose: Normal Inspection, No Blood Throat/Mouth: Normal Inspection, Normal Lips, Normal Voice, No Airway Compromise Head: Atraumatic, Normocephalic Neck: Normal Inspection, Full Range of Motion Respiratory/Chest: No Respiratory Distress, Other (chronic atelectasis from fibrosis related to RA ). No: Rhonchi, Wheezing, Stridor, Accessory Muscle Use Cardiovascular: Regular Rate, Rhythm, Systolic Murmur GI/Abdominal: Normal Bowel Sounds, Soft, No Organomegaly, No Distention, Tender (mildly at mid abdomen) Back Exam: Normal Inspection, Full Range of Motion. 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 Chemistries show low sodium at 131. GFR is >60. CT with contrast is performed. Giving NS for hydration and sodium. Discussed with daughter that offering her mother some salty foods might be more palatable and benefit sodium level as well. She says her mom likes salty foods. 07/03/19 17:52 CT abd/pelvis shows a new 6 mm nodule in right lung base compared to study in 2013, hiatal hernia, fibrosis (interstitial pneumonia, I called radiologist for explanation of this), cholelithiasis without evidence of acute cholecystitis. A liter of fluids is finishing up and patient is doing well. Discussed findings and recommendations with patient and daughter. Not sure if hiatal hernia is major cause of her inability to eat well but is likely. Surgery may or may not be an option for her; discussed using her omeprazole daily rather than prn, for a month to see if it will help. Departure - Departure Time of Disposition: 18:02 Disposition: Home, Self-Care 01 Condition: Fair Clinical Impression: Decreased appetite, Incidental lung nodule, > 3mm and < 8mm, Hiatal hernia, General weakness, Constipation due to opioid therapy Cholelithiasis Qualifiers: Cholelithiasis location: gallbladder Cholecystitis presence: without cholecystitis Biliary obstruction: without biliary obstruction Qualified Code(s) : K80.20 - Calculus of gallbladder without cholecystitis without obstruction - Discharge Information Instructions: Cholelithiasis, [id number], Hernia, Adult, [id number], Pulmonary Nodule, [id number] Referrals: Kraig Hamilton, COMPENSATION CONSULTANT [Primary Care Provider] - Additional Instructions: 1. Continue the water intake of 6-8 cups a day. 2. Start taking the omeprazole daily for at least a month to see if it will help you eat. 3. Follow up with your PCP tomorrow or next week for recheck and to discuss possible treatment of hiatal hernia and gallstones. 4. Try to eat at least small meals three times a day. - My Orders Last 24 Hours: My Active Orders 07/03/19 16:03 Abdomen Pelvis w Cont [CT] Stat - Assessment/Plan Last 24 Hours: My Active Orders 07/03/19 16:03 Abdomen Pelvis w Cont [CT] Stat
--- NOTE | 2019-07-03 17:25 | CT ---
[id number] CT/CT Abdomen Pelvis W IV EXAM: ABDOMEN AND PELVIS CT WITH CONTRAST INDICATION: ABDOMINAL PAIN. COMPARISON: September 17, 2013. DISCUSSION: There are moderate changes of usual interstitial pneumonia within the lung bases. 6 mm indeterminate noncalcified peripheral nodule in the anterior aspect of the right lung base (image 12 series 2). Cardiomegaly. Arterial calcifications. Moderate hiatus hernia. There are a few scattered bilateral renal cysts measuring up to about 12 mm in diameter. Cholelithiasis without CT evidence of acute cholecystitis. Multiple scattered colonic diverticula without evidence of diverticulitis. The appendix is not identified, but there are no findings to suggest acute appendicitis. Degenerative changes throughout the spine. The osseous structures are otherwise unremarkable. The pancreas, spleen, adrenal glands and small bowel are normal in appearance. IMPRESSION: 1. Cholelithiasis without CT evidence of acute cholecystitis. 2. Indeterminate 6 mm nodule in the right lung base. Consider follow-up chest CT in 6 months. Ho Unger MD 07/03/19 [id number] Thank you for allowing us to participate in the care of your patient.
== END 2019-07-03 18:15 | disposition home or self-care (01) ==
LOC: KA.ED 15:00
DX: K59.03 Drug induced constipation (principal); T40.2X5A Adverse effect of other opioids, initial encounter; K80.20 Calculus of gallbladder without cholecystitis without obstruction; K44.9 Diaphragmatic hernia without obstruction or gangrene; R53.1 Weakness; R63.0 Anorexia; R91.1 Solitary pulmonary nodule; I10 Essential (primary) hypertension; I48.91 Unspecified atrial fibrillation; K21.9 Gastro-esophageal reflux disease without esophagitis; M06.9 Rheumatoid arthritis, unspecified; Z86.2 Personal history of diseases of the blood and blood-forming organs and certain disorders involving the immune mechanism; Z88.2 Allergy status to sulfonamides; Z88.1 Allergy status to other antibiotic agents; Z79.899 Other long term (current) drug therapy
CPT/HCPCS: 74177; 96361; 96374; 99284; J2405; J7030; J7050; Q9967